=== PATIENT | male | born 1970 | race Caucasian/White ===

== ENCOUNTER 2020-03-30 10:53 | Emergency (ER) | payer OTHER, SELFPAY ==
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
[2020-03-30 10:59] VITALS: BP 184/116; PULSE 60; RESP 18; TEMP 36.7; O2SAT 97
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
[2020-03-30] MEDS: SODIUM CHLORIDE 0.9% IV 1,000 ML 999 ML IV CONT (13:35)
[2020-03-30] MEDS: diazePAM INJ (*CRX) 10 MG/2 ML SYRINGE 5 MG IV PUSH (13:37)
[2020-03-30 13:46] LABS: Basophils Absolute Auto 0.1 K/mm3 (0.0-0.1); Basophils Percent Auto 0.8 % (0.2-1.2); Eosinophils Absolute Auto 0.3 K/mm3 (0-0.3); Eosinophils Percent Auto 4.8 % (0-4.4); Hematocrit 43.9 % (42.0-52.0); Hemoglobin 15.2 g/dL (14.0-18.0); Immature Granulocyte Absolute 0.01 K/mm3 (0.00-0.031); Immature Granulocyte Percent A 0.1 % (0-0.5); Lymphocytes Absolute Auto 2.18 K/mm3 (0.9-3.2); Lymphocytes Percent Auto 30.5 % (18.3-44.2); Mean Corpuscular HGB Conc 34.6 g/dl (32-36); Mean Corpuscular Hemoglobin 29.9 pg (26-34); Mean Corpuscular Volume 86.2 fl (80-100); Mean Platelet Volume 8.9 fl (7.4-10.4); Monocytes Absolute Auto 0.4 K/mm3 (0.1-0.6); Monocytes Percent Auto 5.5 % (2.6-8.5); Neutrophils Absolute Auto 4.2 K/mm3 (1.3-6.7); Neutrophils Percent Auto 58.3 % (45.5-73.1); Platelet Count Result 184 k/mm3 (150-375); Red Blood Count 5.09 M/mm3 (4.6-6.20); Red Cell Distribution Width 12.5 % (11.5-14.5); White Blood Count 7.2 K/mm3 (4.5-10.0)
[2020-03-30 13:58] LABS: Alanine Aminotransferase 49 U/L (4-50); Albumin Level 4.2 g/dL (3.5-5.1); Alkaline Phosphatase 74 U/L (38-126); Anion Gap 7 mmol/L (8-16); Aspartate Amino Transferase 54 U/L (17-59); Bilirubin,Total 0.8 mg/dL (0.2-1.3); Blood Urea Nitrogen 17 mg/dL (9-20); Calcium 9.1 mg/dL (8.4-10.2); Carbon Dioxide 34 mmol/L (22-30); Chloride 103 mmol/L (98-107); Estimated CRCL calculation 105 ml/min; Estimated Glomerular Filt Rate > 60; Glucose 87 mg/dL (75-110); Potassium 3.6 mmol/L (3.4-5.0); Sodium 144 mmol/L (137-145)
--- NOTE | 2020-03-30 14:00 | PC.NURSE ---
Pt unable to give urine sample at this time.
[2020-03-30 14:09] VITALS: BP 171/69; PULSE 88; RESP 17; O2SAT 100
== END 2020-03-30 15:19 | disposition home or self-care (01) ==
PROVIDERS: Emergency Medicine Emergency Medical Services; Emergency Provider Emergency Medicine; PCP Family Medicine
DX: R10.12 Left upper quadrant pain (principal); E78.5 Hyperlipidemia, unspecified; I10 Essential (primary) hypertension; K76.0 Fatty (change of) liver, not elsewhere classified; D73.89 Other diseases of spleen; J98.4 Other disorders of lung; N28.1 Cyst of kidney, acquired; V48.5XXA Car driver injured in noncollision transport accident in traffic accident, initial encounter
CPT/HCPCS: 36415; 71260; 74177; 80053; 85025; 96365; 96375; 99284; J0131; J3360; J7030; Q9967

== ENCOUNTER 2025-03-16 05:53 | Observation (INO) | payer OTHER, SELFPAY ==
[2025-03-16] VITALS (25 sets, daily range): BP systolic 139–184; BP diastolic 63–104; PULSE 46–60; RESP 10–16; TEMP 36.2–36.8; O2SAT 95–100; BMI 36.4
--- NOTE | ~2025-03-16 | XR_ITS ---
Examination: XR chest 1V Clinical History: r/o cva Comparison: CT chest abdomen pelvis 03/30/2020 Technique: Portable AP Findings: Heart size mildly enlarged. Lungs clear. No acute bony abnormality. IMPRESSION: 1. No acute cardiopulmonary findings given portable technique. Reviewed, dictated and finalized at location R.
--- NOTE | ~2025-03-16 | MR_ITS ---
EXAMINATION: MR brain/brain stem wo con DATE: 03/17/2025 08:39 INDICATION: Stroke. TECHNIQUE: Magnetic resonance imaging (MRI) of the brain and brainstem was performed without intravenous contrast. COMPARISON: Head CT 03/16/2025 FINDINGS: There are scattered areas of nonspecific increased T2-weighted signal intensity in the cerebral white matter, which is within normal limits for the patient's age. There is no intracranial hemorrhage, acute infarction, or abnormal intracranial mass lesion. The ventricles are normal in size. There is mild mucosal thickening in the paranasal sinuses. The orbits are normal. The mastoid air cells are normal. IMPRESSION: 1. Normal aging brain. Reviewed, dictated and finalized at location E. IMPRESSION: 1. Normal aging brain.
--- NOTE | ~2025-03-16 | CT_ITS ---
CTA NECK, CTA HEAD Clinical History: L numbness, weakness Comparison: Noncontrast CT head today TECHNIQUE: Helical images thoracic inlet to vertex 100 mL Omnipaque 350 Coronal, sagittal reformats. Multi planar MIPS CT images acquired with automatic exposure control for dose reduction DLP: 1214 mGy-cm Findings: NASCET Criteria utilized CTA NECK Aortic arch: No aneurysm or dissection. Great vessel origins: No stenosis. CCAs: No stenosis. Cervical ICAs: No stenosis. Vertebral Arteries: Patent. Lung Apices: Clear. Thyroid: Unremarkable. Nodes: No enlarged nodes. Bones: No acute bony abnormality. CTA HEAD: Aneurysms: None. Intracranial ICAs: Patent, unremarkable. ACAs and their distal branches: Patent, unremarkable. A-Comm: Identified. Patent, unremarkable. MCAs and their distal branches: Patent, unremarkable. Basilar artery: Patent, unremarkable. tool design checker and their distal branches: Patent, unremarkable. P-Comms: Left side present. IMPRESSION: CTA NECK: 1. No acute findings. CTA HEAD: 1. No acute findings. Reviewed, dictated and finalized at location R.
--- NOTE | ~2025-03-16 | CT_ITS ---
CT HEAD NON-CONTRAST Clinical History: r/o cva Comparison: None Technique: Unenhanced axial images skull base to vertex Coronal, sagittal reformats CT images acquired with automatic exposure control for dose reduction DLP: 681 mGy-cm Findings: Sulci, ventricles: Unremarkable. No intracerebral hemorrhage. No evidence acute territorial infarct. No mass effect, midline shift. Faint bilateral basal ganglia calcification. Bony calvarium intact. Visualized paranasal sinuses: Clear. Mastoid air cells: Clear. IMPRESSION: 1. No acute intracranial findings. Reviewed, dictated and finalized at location R.
--- NOTE | 2025-03-16 05:58 | ECG_ITS ---
Test Date: 2025-03-16 06:39:47 Measurements Intervals [place] Rate: 48 P: 16 CT: 175 QRS: 50 QRSD: 87 T: 78 QT: 454 QTc: 407 Interpretive Statements SINUS BRADYCARDIA BORDERLINE R WAVE PROGRESSION, ANTERIOR LEADS NONSPECIFIC ST & T-WAVE ABNORMALITY- INF/HIGH LAT LEADS BASELINE ARTIFACT- I, II, III, AVR, AVL ,AVF, V1-V2 ABNORMAL ECG No previous ECG available for comparison Electronically Signed On 03-16-2025 07:52:53 CDT by Lenin Gaines D.O.
--- NOTE | 2025-03-16 05:58 | PC.NURSE ---
ed charge aware of code stroke pt, sending a nurse to come grab pt to take them to stroke stop.
[2025-03-16 06:15] LABS: Hematocrit 45.5 % (42.0-52.0); Hemoglobin 15.8 g/dL (14.0-18.0); Immature Granulocyte Percent A 0.2 % (0-0.5); Lymphocytes Absolute Auto 1.82 K/mm3 (0.9-3.2); Mean Corpuscular HGB Conc 34.7 g/dl (32-36); Mean Corpuscular Hemoglobin 29.3 pg (26-34); Mean Corpuscular Volume 84.3 fl (80-100); Nucleated Red Blood Cells Absolute Auto 0.000 K/mm3 (0.0-0.012); Nucleated Red Blood Cells Perc 0.0 % (0.0-0.2); Platelet Count Result 149 k/mm3 (150-375); Red Blood Count 5.40 M/mm3 (4.6-6.20); White Blood Count 6.2 K/mm3 (4.5-10.0)
[2025-03-16 06:15] LABS: Estimated CRCL calculation 102 ml/min; Estimated Glomerular Filt Rate > 60
[2025-03-16 06:28] LABS: INR 1.0; Prothrombin Time 13.2 Seconds (11.1-14.7)
[2025-03-16 06:29] LABS: Alanine Aminotransferase 48 U/L (6-50); Albumin Level 4.3 g/dL (3.5-5.1); Alkaline Phosphatase 79 U/L (38-126); Anion Gap 7 mmol/L (4-12); Aspartate Amino Transferase 44 U/L (17-59); Bilirubin,Total 0.9 mg/dL (0.2-1.3); Blood Urea Nitrogen 17 mg/dL (9-20); Calcium 8.8 mg/dL (8.4-10.2); Carbon Dioxide 32 mmol/L (22-30); Chloride 100 mmol/L (98-107); Estimated CRCL calculation 113 ml/min; Estimated Glomerular Filt Rate > 60; Glucose 155 mg/dL (65-110); Partial Thromboplastin Time 28.5 Seconds (22.3-36.8); Potassium 3.2 mmol/L (3.4-5.0); Sodium 139 mmol/L (137-145); Total Protein 7.8 g/dL (6.3-8.2)
--- NOTE | 2025-03-16 06:30 | ED.NEUROSD ---
HPI - Neuro Symptoms/Deficit General Chief Complaint: Suspected CVA Stated Complaint: i think i am having a stroke Time Seen by Provider: 03/16/25 05:55 Source: patient Mode of arrival: ambulatory Limitations: no limitations History of Present Illness HPI Narrative: This is a 54-year-old male, history of hypertension and diabetes, presents emergency department complaining left arm numbness and difficulty swallowing with last known 05:15 today. The patient states he has began experiencing the symptoms while driving to work. He states the left arm tingling has improved though he continues to have some nausea and sensation of instability. He has no other complaints at this time. Related Data Home Medications ?Medication ?Instructions ?Recorded ?Confirmed ?Last Taken ?Type amlodipine 2.5 mg tablet 2.5 mg PO DAILY 03/16/25 03/16/25 03/15/25 History buspirone 10 mg tablet 5 mg PO BID 03/16/25 03/16/25 03/14/25 History carvedilol 3.125 mg tablet 3.125 mg PO Q12H 03/16/25 03/16/25 03/15/25 History lisinopril 20 1 tablet PO DAILY@0630 03/16/25 03/16/25 03/15/25 History mg-hydrochlorothiazide 25 mg tablet metformin 500 mg tablet,extended 500 mg PO QPM 03/16/25 03/16/25 03/15/25 History release 24 hr sertraline 100 mg tablet 100 mg PO Q24H 03/16/25 03/16/25 03/15/25 History simvastatin 20 mg tablet 20 mg PO QPM 03/16/25 03/16/25 03/15/25 History Allergies Allergy/AdvReac Type Severity Reaction Status Date / Time bee sting Allergy Severe Anaphylaxis Uncoded 03/16/25 18:39 Review of Systems Review of Systems: All systems reviewed & are unremarkable except as noted in HPI and below PMFSH Past Medical History Medical History Diabetes mellitus Hyperlipidemia Hypertension Appendicitis Surgical History Surgical History History of appendectomy Social History Social History Smoking status: Never smoker Alcohol intake: never Substance use: never Lack of Transportation: No Lack of Food: Never True Current Housing: I Have Housing Concerned About Future Housing: No Difficulty Paying Gas/Electric Bills: No Difficulty Paying for Meds: No Currently Unemployed: No Education: Associate Degree Difficulty w/ Childcare or Family Care: No Spiritual care concerns: No Exam Narrative: GENERAL: Well-developed, well-nourished, and in no acute distress. HEAD: Normocephalic, atraumatic. EYES: PERRLA and EOMI. ENT: Nares clear, no rhinorrhea or epistaxis. Mucous membranes moist. Oropharynx without tonsillar hypertrophy exudate or other lesions. Bilateral TMs pearly vaz nonbulging NECK: Supple. No adenopathy or masses. No carotid bruits or JVD CHEST: Clear to auscultation. No respiratory distress. No wheezes rales or rhonchi HEART: Regular rate and rhythm. No murmur heard. Normal peripheral pulses. ABDOMEN: Soft, nontender, nondistended, normal active bowel sounds. EXTREMITIES: Normal range of motion. No edema. SKIN: Warm, dry, no rash. NEURO: Alert and oriented x3. No focal deficit. Strength 5/5 in all extremities, sensation intact bilaterally, noted ataxia, cranial nerves 2-12 intact PSYCH: Normal mood and affect. Course Course Emergency Course: 06:30 - Noncontrast CT head not concerning for acute intracranial abnormality. Bilateral basal ganglia calcifications were noted. 07:16 - On re-evaluation, the patient states the symptoms are beginning to improve. CT angiogram of head and neck negative for intracranial hemorrhage, aneurysm or occlusion. I discussed the patient with neurologist, Dr. Araujo agrees to consult and recommends admission with aspirin and Plavix. I suspect TIA. 07:41 - CBC demonstrates mild thrombocytopenia with platelets of 149 but is otherwise unremarkable. Chemistries demonstrate mild hypokalemia with potassium 3.2. INR 1. Glucose elevated at 155. Troponin negative. EKG not concerning for ischemia or arrhythmia. Chest x-ray not concerning for acute cardiopulmonary process. I discussed the patient with hospitalist, Dr. Garcia who accepts admission. Vital Signs Vital signs: Vital Signs Temperature 98.3 F 03/16/25 06:33 Pulse Rate 55 L 03/16/25 06:33 Respiratory Rate 11 L 03/16/25 06:33 Blood Pressure 184/99 H 03/16/25 06:33 Pulse Oximetry 96 03/16/25 06:33 Temperature 98.3 F 03/16/25 06:33 Pulse Rate 49 L 03/16/25 07:31 Respiratory Rate 14 03/16/25 07:31 Blood Pressure 159/86 H 03/16/25 07:31 Pulse Oximetry 97 03/16/25 07:31 MDM - Neuro Symptoms/Deficit MDM Narrative Medical decision making narrative: Plan protocol imaging, labs, EKG neurology consultation, reassess Differential Diagnosis Differential diagnosis: Likely cerebrovascular accident, transient cerebral ischemia and other (Intracranial hemorrhage, intracranial mass, metabolic abnormality, hypoglycemia, other) Lab Data 03/16/25 06:06 03/16/25 06:11 Labs: Lab Results 03/16/25 03/16/25 03/16/25 Range/Units 05:59 06:06 06:11 WBC 6.2 (4.5-10.0) K/mm3 RBC 5.40 (4.6-6.20) M/mm3 Hgb 15.8 (14.0-18.0) g/dL Hct 45.5 (42.0-52.0) % MCV 84.3 (80-100) fl MCH 29.3 (26-34) pg MCHC 34.7 (32-36) g/dl RDW 12.6 (11.5-14.5) % Plt Count 149 L (150-375) k/mm3 MPV 8.9 (7.4-10.4) fl Immature Gran % (Auto) 0.2 (0-0.5) % Neut % (Auto) 57.5 (45.5-73.1) % Lymph % (Auto) 29.6 (18.3-44.2) % [place] % (Auto) 7.0 (2.6-8.5) % Eos % (Auto) 4.9 H (0-4.4) % Baso % (Auto) 0.8 (0.2-1.2) % Lymph # (Auto) 1.82 (0.9-3.2) K/mm3 [place] # (Auto) 0.4 (0.1-0.6) K/mm3 Eos # (Auto) 0.3 (0-0.3) K/mm3 Baso # (Auto) 0.1 (0.0-0.1) K/mm3 Abs Immat Gran (auto) 0.01 (0.00-0.031) K/mm3 Absolute Neuts (auto) 3.5 (1.3-6.7) K/mm3 Absolute Nucleated RBC 0.000 (0.0-0.012) K/mm3 Nucleated RBC % 0.0 (0.0-0.2) % PT 13.2 (11.1-14.7) Seconds INR 1.0 APTT 28.5 (22.3-36.8) Seconds Sodium 139 (137-145) mmol/L Potassium 3.2 L (3.4-5.0) mmol/L Chloride 100 (98-107) mmol/L Carbon Dioxide 32 H (22-30) mmol/L Anion Gap 7 (4-12) mmol/L BUN 17 (9-20) mg/dL Creatinine 0.81 0.90 (0.7-1.3) mg/dL Estim Creat Clear Calc 113 102 ml/min Estimated GFR > 60 > 60 (59 - ) Glucose 155 H (65-110) mg/dL POC Capillary Glucose 174 H (65-105) mg/dl Calcium 8.8 (8.4-10.2) mg/dL Total Bilirubin 0.9 (0.2-1.3) mg/dL AST 44 (17-59) U/L ALT 48 (6-50) U/L Alkaline Phosphatase 79 (38-126) U/L Troponin I 0.026 (0.000-0.034) ng/mL Total Protein 7.8 (6.3-8.2) g/dL Albumin 4.3 (3.5-5.1) g/dL ECG Data EKG #1: Attestation: I personally reviewed and interpreted this ECG as follows: ECG completion date: 03/16/25 ECG completion time: 06:39 Prior ECG tracings: not available for review Interpretation: Sinus bradycardia, rate 48, normal axis, no ST segment elevations or T-wave inversions concerning for ischemia, normal intervals with QTC of 407. Discharge Plan Discharge Clinical Impression: Left arm numbness, Brain TIA, Bradycardia, sinus, Acute hypokalemia Patient Disposition: Still a Patient Condition: Serious Time of Disposition: 07:41
[2025-03-16 06:37] LABS: Troponin I 0.026 ng/mL (0.000-0.034)
--- NOTE | 2025-03-16 07:32 | PC.NURSE ---
BSR completed with Alysia GIBSON
--- OUTSIDE RECORDS SUMMARY | 2025-03-16 07:34 | XMS_ITS | Data Portability ---
Author Organization [facility], Main Office Address [address] [place] [address] Assessment No assessment recorded. Plan of Treatment Reminders Order Date Submit Date Provider Last Modified By Organization Details Last Modified Time Details Appointments Any 15 2025 03:15P Dawn Alvarez, PERFORMANCE IMPROVEMENT COORDINATOR Not available Not available Not available Lab glycohemo globin, total, blood 2024 025 [facility] (Lab), [address] [place], [address], 02/07/2025 17:13:30 lipid panel, serum 2024 025 [facility] (Lab), [address] [place], [address], 02/07/2025 17:13:30 glycohemo globin, total, blood [address] (Lab), [address] [place], [address], 12/21/2024 08:11:17 lipid panel, serum [address] (Lab), [address] [place], [address], 12/21/2024 08:11:17 CMP, serum or plasma [address] (Lab), [address] [place], [address], 12/21/2024 08:11:17 TSH, serum or plasma [address] (Lab), [address] [place], [address], 12/21/2024 08:11:18 CBC w/ auto diff 2024 025 [facility] (Lab), [address] [place], [address], 12/15/2024 00:18:48 testoster one, free + total, serum [address] (Lab), [address] [place], [address], 12/21/2024 08:11:18 noninvasi ve colorecta l cancer DNA + occult blood screening , QL, stool 2024 025 [place] [address] [facility], [address], [address], [place], [address], 12/21/2024 08:11:17 PSA, serum or plasma 2024 025 [facility] (Lab), [address] [place], [address], 06/28/2024 16:02:06 Referral general surgeon referral - Please call patient to schedule an appointme nt. Thank you. 2024 025 [email or web address] Milo Whitney MD, [address] [facility], [address], [place], [address], 01/11/2025 09:12:46 Procedures None recorded. Surgeries None recorded. Imaging US, abdominal wall - Please call patient to schedule. [address] [facility] ([facility]), [address] [place], [address], 01/06/2025 20:36:56 Medication Orders hydroxyzi ne HCl 25 mg tablet 2024 025 [facility] #75955, [address], [place], [id number], 12/14/2024 12:39:51 buspirone 10 mg tablet [address] [facility] #08646, [address], [place], [id number], 12/14/2024 11:56:56 simvastat in 20 mg tablet 2024 025 [facility] #79843, [address], [place], [id number], 09/19/2024 16:09:03 gabapenti n 300 mg capsule 2024 025 [facility] #60575, [address], [place], [id number], 09/19/2024 16:16:37 buspirone 10 mg tablet [address]18, [address], [place], [id number], 12/14/2024 11:56:56 alprazola m 0.5 mg tablet [address]01493, [address], [place], [id number], 12/14/2024 11:56:44 Patient TargetsNo targets recorded. Patient InstructionsNo instructions recorded. Reason for Referral General Surgeon Referral for Lipoma of trunk Please call patient to schedule an appointment. Thank you. Referring Physician: Sushila Alvarez, Family Medicine, Encounter Date: 12/14/2024 Results Created Date Observation Date Name Description Value Unit Range Abnormal Flag Note LastModifiedBy Organization Detail LastModifiedTime 01/14/20 25 01/13/2025 COLOG UARD cologuard result reportable NEGATI VE negati ve normal The Colog uard (TM) test was perfo rmed on this speci men. NEGAT NICHOLAS TEST RESUL T. A negat nicholas Colog uard resul t indic ates a low likel ihood that a color ectal cance r (CRC) or advan remy adeno ma (yoshi omato us polyp s with more advan remy pre-m align ant featu res) is prese nt. The chanc e that a perso n with a negat nicholas Colog uard test has a color ectal cance r is less than 1 in 1500 (nega tive predi ctive value >99.9 %) or has an advan remy adeno ma is less than 5.3% (nega tive predi ctive value 94.7% ). These data are based on a prosp ectiv e cross -sect ional study of 10,00 0 indiv idual s at [place] ge risk for color ectal cance r who were scree emerson with both Colog uard and colon oscop y. (Viry Tillman. et al, N Engl J Med 2014; 370(1 4):12 86-12 97) The teodora l value (refe rence range ) for this assay is negat nicholas. COLOG UARD RE-SC REENI NG RECOM MENDA TION: Perio dic color ectal cance r scree shashi is an impor tant part of preve ntive healt hcare for asymp tomat ic indiv idual s at [place] ge risk for color ectal cance r. Follo wing a negat nicholas Colog uard resul t, the Ameri can Cance r Socie ty and U.S. Multi -Soci ety Task Force scree shashi guide lines recom mend a Colog uard re-sc reeni ng inter ovidio of 3 years . Refer ences : Ameri can Cance r Socie ty Guide line for Color ectal Cance r Scree shashi: https ://christal w.can cer.o rg/ca ncer/ colon -rect al-ca ncer/ detec tion- diagn osis- stagi ng/ac s-rec ommen datio ns.ht ml.; Cody GABRIEL, Linda STONE, Kala ARIZMENDI, Color ectal Cance r Scree shashi: Recom menda tions for Physi cians and Patie nts from the U.S. Multi -Soci ety Task Force on Color ectal Cance r Scree shashi , Kierra Lobo oente rolog y 2017; 112:1 016-1 030. TEST DESCR IPTIO N: [place] site algor ithmi c sj sis of stool DNA-b iomar kers with hemog lobin immun oassa y. Quant itati ve value s of indiv idual bioma rkers are not repor table and are not assoc iated with ind idual bioma rker resul t refer ence range s. Colog uard is inten ded for color ectal cance r scree shashi of adult s of eithe r sex, 45 years or older , who are at [facility] for color ectal cance r (CRC) . Colog uard has been appro angela for use by the U.S. FDA. The perfo rmanc e of Colog uard was estab lishe d in a cross secti onal study of [facility] adult s aged 50-84 . Colog uard perfo rmanc e in patie nts ages 45 to 49 years was estim ated by sub-g roup sj sis of near- age group s. Colon oscop ies perfo rmed for a posit nicholas resul t may find as the most clini ector signi ficdelmis t lesio n: color ectal cance r [4.0% ], advan remy adeno ma (incl uding sessi le chidi corbin polyp s great er than or equal to 1cm diame ter) [20%] or non- advan remy adeno ma [31%] ; or no color ectal neopl louise [45%] . These estim ates are deriv ed from a prosp ectiv e cross -sect ional scree shashi study of 10,00 0 indiv idual s at [facility] risk for color ectal cance r who were scree emerson with both Colog uard and colon oscop y. (Viry Castano et al, N Engl J Med 2014; 370(1 4):12 86-12 97.) Colog uard may produ ce a false negat nicholas or false posit nicholas resul t (no color ectal cance r or preca ncero us polyp prese nt at colon oscop y follo w up). A negat nicholas Colog uard test resul t does not guara ntee the absen ce of CRC or advan remy adeno ma (pre- cance r). The curre nt Colog uard scree shashi inter ovidio is every 3 years . (Amer ican Cance r Socie ty and U.S. Multi -Soci ety Task Force ). Colog uard perfo rmanc e data in a 10,00 0 patie nt pivot al study using colon oscop y as the refer ence metho d can be [facility]es sed [facility] locat ion: www.e xactl abs.c om/re jessica . Addit ional descr iptio n of the Colog uard test proce ss, warni ngs and preca ution s can be found at www.c ologu imer.c om. Not Available [facility] [address], [place], [address], 01/20/2025 05:40:21 01/07/20 25 01/06/2025 US, abdom inal wall No observ ation record ed. [facility] [address] [place], [address], 01/10/2025 10:59:38 01/07/20 25 01/06/2025 US, abdom inal wall No observ ation record ed. [facility] [address] [place], [address], 01/10/2025 10:59:39 Result Notes None recorded. Problems Name Problem SNOMED Code Status Onset Date Resolution Date Notes Provider Name and Address Organization Details Recorded Time Pain in throat 815399244 Completed Not Available [facility] 3 16:28:28 Contact dermatiti s caused by urushiol from [employer] amanda 384185956 Completed Not Available [facility] 3 16:28:28 Lateral epicondyl itis 612374456 Completed Not Available [facility] 3 16:28:28 Hypertens nicholas disorder 49245943 Active Not Available [facility] 3 13:57:29 Viral syndrome 314892273 Completed Not Available [facility] 3 16:28:28 Herpes zoster 1687108 Completed Not Available [facility] 3 16:28:28 Post-trau matic stress disorder 72841425 Active Not Available [facility] 3 13:57:29 Anxiety 82564478 Active MATTHEW Paz [address], [address], [place], [address] , [facility] [employer] 5 12:11:59 Cough 90639136 Completed Not Available [facility] 3 16:28:28 Inflammat ion of sacroilia c joint 10021503 Active Not Available [facility] 3 13:57:29 Hyperlipi demia 32110785 Active Not Available [facility] 3 13:57:29 Essential hypertens ion 06045540 Active Not Available [facility] 3 13:57:29 Lipoma 69268805 Active Not Available [facility] 3 13:57:29 Sleep disorder 28034236 Active 2022 Not Available [facility] 3 13:57:29 Erectile dysfuncti on 533276017 Active 2022 Not Available [facility] 3 13:57:29 Mixed anxiety and depressiv e disorder 850332175 Active 2022 Tere Mccormack MD [address], [address], [place], [address] , [facility] [employer] 3 14:25:34 Allergic reaction to bee sting 468261648 Active 2023 PEMA Miles [address], [address], [place], [address] , [employer] 4 11:32:03 Screening for malignant neoplasm of prostate Active 2023 PEMA Miles [address], [address], [place], [address] , [employer] [facility] 4 15:46:01 Neuropath y 060692659 Active 2024 PEMA Milse [address], [address], [place], [address] , [employer] [facility] 5 16:12:08 Strain of muscle of right groin region 79785518214 333061 Active 2024 EPMA Miles [address], [address], [place], [address] , [employer] [facility] 5 16:13:09 Lipoma of trunk 61058850739 9107 Active 2024 MATTHEW Paz [address], [address], [place], [address] , [employer] [facility] [employer] [facility] 5 12:07:54 Periphera l neuropath ic pain 382155140 Active 2024 MATTHEW Paz [address], [address], [place], [address] , [employer] [facility] 5 12:17:43 Reduced libido 3626758 Active 2024 MATTHEW Paz [address], [address], [place], [address] , [employer] [facility] 5 12:28:56 Well controlle d type 2 diabetes mellitus 224979951 Active 2024 MATTHEW Paz [address], [address], [place], [address] , [employer] [facility] 5 17:10:21 Male hypogonad ism 92404370 Active 2024 MATTHEW Paz [address] [facility], [facility] [address], [place], [address] , [employer] 5 12:44:58 Irritabil ity and anger 868364889 Active 2024 Sushila Alvarez, [facility] [address] [facility], [facility] [address], [place], [address] , [employer] 5 14:09:46 Psoriasis 2321476 Active 2024 Sushila Alvarez, [facility] [address] [facility], [facility] [address], [place], [address] , [employer] 5 17:11:19 Notes:Tere Mccormack MD [facility] home sleep study 08/25/22 AHI = 10, supine AHI = 26 Medical History: Anxiety/PTSD Obesity with mild OSAHS, AHI = 10, 08/25/22 Hypertension Mixed hyperlipidemia ED Problem Notes None recorded. Procedures Surgical History Date Name Laterality Status Provider Name and Address Organization Details Recorded Time appendectomy completed Belkis Argueta RN [facility] [employer] 12/14/2024 12:01:11 Imaging Results None recorded. Procedure Notes None recorded. Medical Equipment None Reported. Allergies Allergen ID Allergen Name Allergen Category Reaction Reaction Severity Criticality Documentation Date Start Date Code Code System Note Provider Name and Address Organization Details Recorded Time 33575 honey bee venom medicatio n Not available Not available Not available 11/19/2023 43563 7 RxNorm Darlyn Lam RN [facility], [facility] [employer] 4 15:35:19 Medications Name Sig Start Date Stop Date Status Note LastModified by Organization Details LastModified Time status covid-19/fl u a-b antigen tst TEST DIRECTED TODAY 12/14 completed Not Available Not Available Not Available cyclobenzap rine 10 mg tablet TAKE 1 TABLET BY MOUTH DAILY AT BEDTIME NEEDED 07/26 completed Not Available Not Available Not Available buspirone 5 mg tablet TAKE 1 TABLET BY MOUTH TWICE DAILY AFTER FOOD 12/14 completed Not Available Not Available Not Available nystatin 100,000 unit/mL oral suspension Take 5 mL 4 times a day by oral route for 10 days. 11/10 completed Not Available Not Available Not Available ibuprofen 800 mg tablet TAKE 1 TABLET BY MOUTH THREE TIMES DAILY 07/26 completed Not Available Not Available Not Available alprazolam 1 mg tablet TAKE 1 TABLET BY MOUTH THREE TIMES DAILY NEEDED. MAKE LAST 30 DAYS 12/14 completed Not Available Not Available Not Available fluconazole 150 mg tablet Take 1 tablet every day by oral route for 7 days. 11/10 completed Not Available Not Available Not Available hydrocodone 5 mg-acetamin ophen 325 mg tablet Take 1 tablet every 6 hours by oral route. 2013 active Not Available Not Available Not Avai lable Medrol (Wood) 4 mg tablets in a dose pack Take by oral routeas directed active Not Available Not Available No t Available prednisone 20 mg tablet TAKE 3 TABLETS BY MOUTH DAILY FOR 7 DAYS 11/18 completed Not Available Not Available Not Available testosteron e cypionate 100 mg/mL intramuscul ar oil Inject 0.75 ml once weekly IM as directed 02/07 completed Not Available Not Available Not Available sertraline 100 mg tablet TAKE 1 TABLET BY MOUTH DAILY active Not Available Not Available No t Available Zithromax Z-Wood 250 mg tablet TAKE 2 TABLETS (500 MG) BY ORAL ROUTE ONCE DAILY FOR 1 DAY THEN 1 TABLET (250 MG) BY ORAL ROUTE ONCE DAILY FOR 4 DAYS 03/21 completed Not Available Not Available Not Available amlodipine 2.5 mg tablet TAKE 1 TABLET BY MOUTH EVERY DAY IN THE MORNING active Not Available Not Available No t Available amlodipine 5 mg tablet TAKE 1 TABLET BY MOUTH EVERY DAY IN THE MORNING 07/26 completed Not Available Not Available Not Available sildenafil 100 mg tablet TAKE 1 TABLET BY MOUTH EVERY DAY NEEDED 2024 active Not Available Not Available Not Avai lable carvedilol 3.125 mg tablet TAKE 1 TABLET BY MOUTH TWICE DAILY active Not Available Not Available No t Available Zofran 4 mg tablet Take 1 tablet every 8 hours by oral route as needed. active Not Available Not Available No t Available alprazolam 0.5 mg tablet TAKE 1 TABLET BY MOUTH THREE TIMES DAILY FOR ANXIETY TRYING TO WEAN DOWN 12/14 completed Not Available Not Available Not Available amoxicillin 875 mg tablet Take 1 tablet every 12 hours by oral route. active Not Available Not Available No t Available tamsulosin 0.4 mg capsule Take 1 capsule every day by oral route. 2013 active Not Available Not Available Not Avai lable benzonatate 100 mg capsule TAKE 1 CAPSULE BY MOUTH THREE TIMES DAILY FOR 5 DAYS. MAY TAKE 1-2 TABLETS UP TO 3 TIMES DAILY FOR COUGH 11/18 completed Not Available Not Available Not Available simvastatin 20 mg tablet TAKE 1 TABLET BY MOUTH DAILY active Not Available Not Available No t Available Cipro 500 mg tablet Take 1 tablet every 12 hours by oral route. 2013 active Not Available Not Available Not Avai lable buspirone 10 mg tablet TAKE 1 TABLET BY MOUTH TWICE DAILY FOR ANXIETY 12/14 completed Not Available Not Available Not Available clotrimazol e-betametha sone 1 %-0.05 % topical cream APPLY TO THE AFFECTED AND SURROUNDI NG AREAS OF SKIN BY TOPICAL ROUTE 2 TIMES PER DAY IN THE MORNING AND EVENING FOR 2 WEEKS 08/02 completed Not Available Not Available Not Available gabapentin 300 mg capsule TITRATE PER ATTACHED DIRECTION S TO A DOSE OF 2 CAPSULES BY MOUTH THREE TIMES DAILY active Not Available Not Available No t Available lisinopril 20 mg-hydrochl orothiazide 25 mg tablet TAKE 2 TABLETS BY MOUTH DAILY active Not Available Not Available No t Available hydroxyzine HCl 25 mg tablet TAKE 1 TABLET BY MOUTH THREE TIMES DAILY NEEDED active Not Available Not Available No t Available Levaquin 500 mg tablet Take 1 tablet every 24 hours by oral route for 10 days. active Not Available Not Available No t Available epinephrine 0.3 mg/0.3 mL injection, auto-inject or INJECT 1 PEN IN THE MUSCLE ONE TIME DIRECTED NEEDED active Not Available Not Available No t Available testosteron e cypionate 200 mg/mL intramuscul ar oil INJECT 0.25 ML INTO MUSCLE EVERY 4 WEEKS active Not Available Not Available No t Available Lopid 600 mg tablet Take 1 tablet twice a day by oral route. 2013 active Not Available Not Available Not Avai lable ondansetron 4 mg disintegrat ing tablet DISSOLVE 1 TABLET ON THE TONGUE EVERY 6 HOURS FOR 3 DAYS NEEDED FOR NAUSEA OR VOMITING 11/18 completed Not Available Not Available Not Available metformin ER 500 mg tablet,exte nded release 24 hr TAKE 1 TABLET BY MOUTH EVERY DAY DIRECTED active Not Available Not Available No t Available amoxicillin 875 mg-potassiu m clavulanate 125 mg tablet TK 1 T PO BID TAT active Not Available Not Available No t Available fenofibrate 160 mg tablet TAKE 1 TABLET DAILY 10/22 completed Not Available Not Available Not Available Nucynta ER 100 mg tablet,exte nded release Take 1 tablet every 12 hours by oral route. 04/05 completed Not Available Not Available Not Available Nucynta ER 50 mg tablet,exte nded release Take 1 tablet every 12 hours by oral route as needed. 11/18 completed Not Available Not Available Not Available Niacin (niacinamid e) 500 mg tablet Take 1 tablet every day by oral route. active Not Available Not Available No t Available Vitals Date Recorded Body height Body mass index (BMI) Body weight Body temperature Heart rate Oxygen saturation Oxygen saturation in Arterial blood by Pulse oximetry Systolic And Diastolic Provider Name and Address Organization Details Last Updated DateTime 5 177.8 cm 36 kg/m2 424569. 68 g 98.2 [degF] 80 /min 98 % 98 % 140/80 mm[Hg] Sowmya Cody CMA [facility] [employer] 5 09:55:19 Date Recorded Body height Body mass index (BMI) Body weight Body temperature Oxygen saturation Oxygen saturation in Arterial blood by Pulse oximetry Heart rate Systolic And Diastolic Provider Name and Address Organization Details Last Updated DateTime 5 177.8 cm 36.3 kg/m2 548174. 51 g 98.2 [degF] 97 % 97 % 60 /min 132/82 mm[Hg] Nolvia Ibrahim RN [facility] [employer] 5 16:08:56 Date Recorded Body height Body mass index (BMI) Body weight Body temperature Systolic And Diastolic Provider Name and Address Organization Details Last Updated DateTime 09/19/2024 177.8 cm 36 kg/m2 277325. 68 g 98.1 [degF] 132/84 mm[Hg] MED Garcia [facility] [employer] [facility] 5 15:59:03 Date Recorded Body height Body mass index (BMI) Body weight Body temperature Heart rate Respiratory rate Oxygen saturation Oxygen saturation in Arterial blood by Pulse oximetry Systolic And Diastolic Provider Name and Address Organization Details Last Updated DateTime 5 177.8 cm 36.4 kg/m2 969794. 46 g 97.3 [degF] 49 /min 20 /min 94 % 94 % 160/100 mm[Hg] Belkis Argueta RN [facility] [employer] [facility] 5 11:59:30 Date Recorded Body height Body mass index (BMI) Body weight Body temperature Heart rate Respiratory rate Pain severity - 0-10 verbal numeric rating [Score] - Reported Oxygen saturation Oxygen saturation in Arterial blood by Pulse oximetry Systolic And Diastolic Provider Name and Address Organization Details Last Updated DateTime 5 177.8 cm 36.7 kg/m2 425636. 85 g 97.2 [degF] 55 /min 20 /min 0 97 % 97 % 154/100 mm[Hg] Belkis Argueta RN [facility] [employer] [facility] 5 16:39:39 Social History Question Answer Notes LastModified by Organizat ion Details LastModified Time Tobacco Smoking Status Never Smoker Darlyn Lam RN [facility], [facility] [employer] [facility] 03/29/2024 12:47:04 In The 14 Days Before Symptom Onset, Have You Had Close Contact With A Laboratory-confirm ed COVID-19 While That Case Was Ill? No Information n ot available 12/14/2024 In The 14 Days Before Symptom Onset, Have You Had Close Contact With A Person Who Is Under Investigation For COVID-19 While That Person Was Ill? No Information not available 12/14/2024 What Type Of Diet Are You Following? REGULAR Information n ot available 12/14/2024 Have There Been Any Changes To Your Family Or Social Situation? No Information no t available 12/14/2024 Where Do You Live? Other [place] Inform ation not available 12/14/2024 How Many Children Do You Have? 1 Information not available 12/14/2024 Do You Have Any Pets? No Information not available 12/14/2024 What Is Your Relationship Status? Information not available 12/14/2024 Do You Use Your Seat Belt Or Car Seat Routinely? Yes Information not available 12/14/2024 Do You Have Smoke And Carbon Monoxide Detectors In Your Home? Yes Information not available 12/14/2024 Are You Passively Exposed To Smoke? No Information no t available 12/14/2024 Are There Any Smokers In Your House? No Information not available 12/14/2024 Do You Participate In Social Media? Yes Information not available 12/14/2024 Do You Use Sunscreen Routinely? No Information not available 12/14/2024 Have You Recently Traveled Abroad? No Information not available 12/14/2024 Sex: Male Functional Status Question Answer Note LastModified by [employer] ion Details LastModified Time Are you currently employed? Yes Information not available 12/14/2024 What is your occupation? [employer] Information not available 12/14/2024 What is your exercise level? None Information not available 12/14/2024 Mental Status Question Answer Note LastModified by Organization D etails LastModified Time Do you feel stressed (tense, restless, nervous, or anxious, or unable to sleep at night)? [id number] Information not available 12/14/2024 Family History Relationship Description Onset Age of this Age Resolved Age Notes LastModified by Organization Details LastModified Time Mother Muscular dystrophy Not available 2024 12:00:03 Mother Hypertensive disorder Not available 2024 12:00:35 Father Malignant neoplasm of prostate Not available 2024 12:00:26 Medical History Condition Response OBESITY Y Low Testosterone Y HYPERTENSION Y HIGH CHOLESTEROL / HYPERLIPIDEMIA Y Immunizations Vaccine Type Date Status Note Provider Nam e and Address Organization Details Recorded Time zoster recombinant 2 completed Not Available [facility] 10/06/2022 13:57:29 zoster recombinant 1 completed Not Available [facility] 10/06/2022 13:57:29 Tdap 7 completed Not Available [facility] 10/06/2022 13:57:29 MMR 7 completed Not Available [facility] 10/06/2022 13:57:29 Past Encounters Encounter ID Performer Location Encounter Start Date Encounter Closed Date Diagnosis/Indication Diagnosis SNOMED-CT Code Diagnosis ICD10 Code Diagnosis IMO Codes Diagnosis Note [id number] Tere Mccormack MD [facility] [address] [place] [address] [place] [address] 03/21/2021 00:00:00 03/22/2021 06:39:13 [id number] Tere Mccormack MD [facility] [address] [place] [address] [place] [address] 07/24/2021 00:00:00 07/24/2021 20:56:00 [id number] Tere Mccormack MD [facility] Courtney gordillo [address] [place] [address] [place] [address] 10/16/2021 00:00:00 10/16/2021 21:37:57 [id number] Tere Mccormack MD [facility] Courtney gordillo [address] [place] [address] [place] [address] 08/14/2022 13:55:08 08/14/2022 14:24:33 Adult health examination 279982083 Z00.00 Hyperlipidemia 26296307 E78.5 Family his tory of malignant neoplasm of prostate 925420233 Z80.42 Sleep disorder 51837601 G47.9 Essential hypertension 34476041 I10 BP recheck is 170/100 Watch salt and monitor away from here [id number] Bill Cruz MD [facility] Courtney llorion [address] [place] [address] [place] [address] 11/19/2023 15:25:55 11/19/2023 15:49:43 Essential hypertension 08838467 I10 Hyperlipidemia 55640979 E78.5 Screening for malignant neoplasm of prostate 968079190 Z12.5 Hepatitis C screening 41 6739615 Z11.59 Anxiety 63504718 F41.9 Erectile dysfunction 860 005613 F52.21 Sleep disorder 89745884 G47.9 [id number] Bill Cruz MD [facility] Courtney llorion [address] [place] [address] y [place] [address] 03/29/2024 12:34:35 03/29/2024 12:55:10 Essential hypertension 04407779 I10 Anxiety 73000555 F41.9 Hyperlipidemia 32228455 E78.5 Mixed anxi ety and depressive disorder 050613271 F41.8 Post-traum atic stress disorder 26026952 F43.10 [id number] Bill Cruz MD [facility] [address] [facility] [place]reia [place] [address] 04/25/2024 16:00:40 04/25/2024 16:18:39 Essential hypertension 38766670 I10 Anxiety 27657715 F41.9 Hyperlipidemia 67836760 E78.5 Mixed anxi ety and depressive disorder 465241518 F41.8 Post-traum atic stress disorder 79700412 F43.10 [id number] Bill Cruz MD [address] [address] 06/28/2024 09:47:29 06/28/2024 10:19:56 Screening for malignant neoplasm of prostate 869903022 Z12.5 Anxiety 46954239 F41.9 Essential hypertension 55666908 I10 Hyperlipidemia 94351583 E78.5 Mixed anxi ety and depressive disorder 602207855 F41.8 Post-traum atic stress disorder 98963637 F43.10 [id number] Bill Cruz MD [address] [address] 07/26/2024 15:56:48 07/26/2024 16:24:38 Anxiety 38704380 F41.9 Post-traum atic stress disorder 90018554 F43.10 Essential hypertension 83536839 I10 Hyperlipidemia 43056306 E78.5 Sleep disorder 18956008 G47.9 [id number] Bill Cruz MD [address] [address] 09/19/2024 15:47:18 09/19/2024 16:22:49 Hyperlipidemia 12464691 E78.5 Post-traum atic stress disorder 29646203 F43.10 Strain of muscle of right groin region 7270318978 9739495 S76.011A Neuropathy 940733309 G62 .9 Essential hypertension 11119294 I10 [id number] [facility] [address] [place] [address] 12/14/2024 11:48:01 12/14/2024 12:39:59 Physical examination 7050020 Z00.00 812056 Patient is overall [facility]a [facility] maintenanc e Vlad scussed diet and exercisePa tient questions answered Lipoma of trunk 28119476 01 52223 D17.1 18486390 Recently hit one with a saw and had a rupture has significan t bruising Anxiety 24665226 F41.9 91984 Not well controlled . Adverse effects to Buspar Peripheral neuropathic pain 010168098 M79.2 46646625 Chronic, worsening. Last A1C unknownMan aged with gabapentin Essential hypertension 33414569 I10 Well controlled Hyperlipidemia 90823950 E78.5 Last labs many years ago. Tolerating simvastati n well Screening for malignant neoplasm of colon 290640102 Z12.11 0990944 Reduced libido 0281518 R 68.82 56514123 Possibly related to sertraline , we did discuss switching to Wellbutrin but will wait until testostero ne returns [id number] Bill Cruz MD [facility] Carlos [address] [place] [address] 02/07/2025 16:19:15 02/07/2025 17:18:04 Psoriasis 8209236 L40.9 32810 Has tried and failed clobetasol , triamcinol one, and nystatin.Z oryve given in office Hyperlipidemia 17396136 E78.5 Last labs many years ago. Tolerating simvastati n well Well contr olled type 2 diabetes mellitus 049520531 E11.9 448985 Health Concerns Section Related Observation LastModified by Organization Detai ls LastModified Time None Recorded Concern Status LastModified by Organization Details LastModified Time None Recorded Advance Directives Directive None Recorded Payers Insurance Date Sequence Insurance Name Policy Number Policy Granado Covered Member ID Granado Member ID Guarantor Name 07/26/2024 1 [facility] - [employer] () Jung Rothman [id number] Jung Rothman 02/04/2025 1 [facility] () Jung Rothman [id number] Jung Rothman Notes Date Note Type Note Provider Name and Address Organization Details Recorded Time 06/28/2024 text/html ROS as noted in the HPI no changes [employer] [facility] [address] [employer], [place], [address], [employer] 07/01/2024 19:45:31 07/26/2024 text/html ROS as noted in the HPI trying to wean from alprazolam to buspirone [employer] [facility] [address], [employer], [place], [address], [employer] 08/01/2024 20:08:16 09/19/2024 text/html ROS as noted in the HPI tingling in feet , lumps under skin [employer] [facility] [address] [employer], [place], [address], [employer] 10/01/2024 11:41:56 12/14/2024 text/html Jung Rothman is a 54 year old male patient here today for an annual wellness, he previously saw Aaron Jean He has a family hx of prostate cancer, would like his PSA checked. He has a history of anxiety with insomnia. He has been taking buspirone 5 mg in the AM and 10 mg at bedtime and notes this is causing blurred vision. History of hypertension. This is not well controlled. Patient does not check BP readings at home.BP on arrival today is 160/100, recheck 142/80Patient declines headaches, tinnitus, fatigue. Does occasionally get double vision, can resolve with with rest, getting out of the sun. He has STEPHANI LE neuropathy. He is taking gabapentin 300 mg, 2 tabs, TID. Hyperlipidemia. Last labs many years agoThey are currently taking simvastatin 20 mg. Admits to muscle cramping.Advised to limit fatty/greasy foods and increase cardiovascular exercise Concerns with low sex drive Flu shot: declinesCOVID vaccines: declinesTDap: 2017Shingrix: completedPSA: ologuard ordered MATTHEW Paz [address], [facility] [address], [place], [address], [facility] [address] [facility] [employer] [facility] 12/14/2024 13:08:07 02/07/2025 text/html Jung Rothman is a 54 year old male patient here today for a 3 month FU He has concerns with white spots on his left arm, these are silver scaly. History of hypertension. This is well controlled. Patient does not check BP readings at home.BP on arrival today is 154/100.Patient declines headaches, tinnitus, light headedness, fatigue. Type 2 diabetes mellitus. This is well controlled. Last A1C 6.6 on 12/14/24.The patient does not check their blood glucose at home.They are currently taking metformin ER 500 mg daily.Patient denies confusion, excessive urination and thirst, neuropathy, foot wounds. MATTHEW Paz [address], [facility] [address], [place], [address], [employer] 02/07/2025 17:19:16
--- OUTSIDE RECORDS SUMMARY | 2025-03-16 07:34 | XMS_ITS | Patient Health Record ---
Author Organization [facility] [employer] Address [address] [facility] [address] [place] [address] Care Team Providers Care Shoulder Pad Molder Name Role Phone Samuel Trejo Unavailable [phone] Reason For Referral No Information Medications Medication SIG (Take, Route, Frequency, Duration) Notes Start Date End Date Status Simvastatin 20 MG Tablet Oral Active Sertraline HCl 100 MG Tablet Oral Active busPIRone HCl 5 MG Tablet Oral Active Lisinopril-hydroCHLOROthiaz yas 20-25 MG Tablet Oral Active Plan Of Treatment No Information Insurance Providers Payer Name Payer Address Payer Phone Subscriber Number Group Number Insured Name Patient Relationship to Insured Coverage Start Date Coverage End Date [facility] [address] [place] [address] [id number] CANDACE GREEN Self - patient is the insured
--- OUTSIDE RECORDS SUMMARY | 2025-03-16 07:34 | XMS_ITS | Clinical Summary ---
Author Organization [facility] [employer] Address [address] [place] [address] Care Team Providers Care Western [employer] Assembly Line Worker Name Role Phone Unavailable Primary Care Provider Unavailabl e Source Comments [facility],non-owned Affiliates and Associated Physician Practices is amultiple site organization consisting of ambulatory clinics and hospital sitesin [place], [place], [place] and [place]. This disclosure is being madepursuant to the Care Everywhere program and may not contain all information available regarding this patient. Last updated 18.[facility] [employer] Allergies Active Allergy Reactions Criticality Noted Date Comments Bee Anaphylaxis High 03/06/2014 Medications * Be aware that medications may not be up to date on this document. Alwaysverify current medications with the patient. lisinopril-hydr ochlorothiazide (PRINZIDE; ZESTORETIC) 20-25 MG tablet Take 1 Tab by mouth once daily. [facility] [phone](Branden) Active sertraline (ZOLOFT) 100 MG tablet Take 100 mg by mouth once daily. [facility] (Branden) Active tamsulosin CR 24hr (FLOMAX) 0.4 MG capsule Take 0.4 mg by mouth once daily. [facility] [phone] Take 30 minutes after a meal at the same time each day. Active naproxen (NAPROSYN) 500 MG tablet Take 1 Tab by mouth 2 times daily as needed for Pain. 20 Tab 0 03/06/2014 Active hydrocodone-elizabeth taminophen (NORCO) 5-325 MG tablet Take 1-2 Tabs by mouth every 6 hours as needed for Pain. 15 Tab 0 03/06/2014 Active diazepam (VALIUM) 5 MG tablet Take 1 Tab by mouth 3 times daily as needed for Spasms. 6 Tab 0 03/06/2014 Active Social History Tobacco Use Types Packs/Day Years Used Date Smoking Tobacco: Never Alcohol Use Standard Drinks/Week Comments No 0 (1 standard drink = 0.6 oz pur e alcohol) Sex and Gender Information Value Date Recorded Sex Assigned at Not on file Legal Sex Male 2:56 PM CDT Gender Identity Not on file Sexual Orientation Not on file Last Filed Vital Signs Vital Sign Reading Time Taken Comments Blood Pressure 162/83 03/06/2014 5:30 PM CDT Pulse 76 03/06/2014 3:11 PM CDT Temperature 36.6 C (97.9 F) 03/06/2014 3:11 PM CDT Respiratory Rate 18 03/06/2014 3:11 PM CDT Oxygen Saturation 98% 03/06/2014 5:30 PM CDT Inhaled Oxygen Concentration - - Weight 102.1 kg (225 lb) 03/06/2014 3:11 PM CDT Height 180.3 cm (5' 11) 03/06/2014 3:11 PM CDT Body Mass Index 31.38 03/06/2014 3:11 PM CDT Plan of Treatment Health Maintenance Due Date Last Done Comments COLOGUARD (AGES 45-75) - COL ON CA SCREENING 1968 COLON MONITORING 1968 COLONOSCOPY - COLON CA SCREENING 1968 CT COLONOGRAPHY - COLON CA SCREENING 1968 Colorectal Cancer Screening 1968 FIT - COLON CA SCREENING 1968 FLEX SIG - COLON CA SCREENING 1968 LIPID TESTING 1968 HIV SCREENING 1983 HEPATITIS C SCREENING 07/07/1986 DTAP/TDAP/TD VACCINES (1 - Tdap) 1987 HEPATITIS B VACCINE (1 of 3 - 19+ 3-dose series) 1987 PNEUMOCOCCAL VACCINE 50+ (1 of 1 - PCV) 2018 ZOSTER VACCINE (1 of 2) 2018 DEPRESSION SCREENING 06/01/2024 COVID-19 VACCINE (1 - 2023-2 5 season) 2025 INFLUENZA VACCINE (#1) 2025 HIB VACCINE Aged Out No longer eligi ble based on patient's age to complete this topic HPV VACCINE Aged Out No longer eligi ble based on patient's age to complete this topic MENINGOCOCCAL (Group B) VACC INE SHARED DECISION-MAKING Aged Out No longer eligibl e based on patient's age to complete this topic MENINGOCOCCAL GROUPS A/C/Y/W VACCINE Aged Out No longer eligible b ased on patient's age to complete this topic Insurance [facility] [employer]
--- OUTSIDE RECORDS SUMMARY | 2025-03-16 07:34 | XMS_ITS | Clinical Summary ---
Author Organization [facility] Address [address] [place] [address] Care Team Providers Care Head Automatic Sawyer Name Role Phone Tere Mckay MD Primary Care Provider [phone] Allergies No known active allergies Medications simvastatin 20 MG tablet Take 20 mg by mouth nightly at bedtime. Active busPIRone 10 MG tablet Take 10 mg by mouth 2 (two) times daily. Active Multiple Vitamin (MULTIVITAMIN ADULT OR) Active lisinopril 20 MG TABS 20 mg, hydroCHLOROthiazide 25 MG TABS 25 mg Take by mouth daily. Active Family History Medical History Relation Comments Cancer Father Diabetes Father Hypertension Mother Relation Status Comments Father Mother Social History Tobacco Use Types Packs/Day Years Used Date Smoking Tobacco: Never Smokeless Tobacco: Never Alcohol Use Standard Drinks/Week Comments Never 0 (1 standard drink = 0.6 oz pur e alcohol) Sex and Gender Information Value Date Recorded Sex Assigned at Not on file Legal Sex Male 7:14 AM CDT Gender Identity Not on file Sexual Orientation Not on file Last Filed Vital Signs Vital Sign Reading Time Taken Comments Blood Pressure 184/93 02/15/2021 8:30 AM CDT Pulse 49 02/15/2021 7:17 AM CDT Temperature 36.7 C (98.1 F) 02/15/2021 7:17 AM CDT Respiratory Rate 16 02/15/2021 7:17 AM CDT Oxygen Saturation 100% 02/15/2021 8:30 AM CDT Inhaled Oxygen Concentration - - Weight 102 kg (224 lb 13.9 oz) 02/15/2021 7:17 A M CDT Height 179.1 cm (5' 10.5) 02/15/2021 7:17 AM CD T Body Mass Index 31.81 02/15/2021 7:17 AM CDT Plan of Treatment Health Maintenance Due Date Last Done Comments Colorectal Cancer Screening Colonoscopy (10 Years) 1968 Annual Physical 1971 Hepatitis C 1986 Hepatitis B Vaccines (1 of 3 - 19+ 3-dose series) 1987 Pneumococcal Vaccine: 50+ Ye ars (1 of 1 - PCV) 2018 Zoster Vaccines (1 of 2) 2018 COVID-19 Vaccine (1 - 2023-2 5 season) 2025 Influenza Adult (#1) 2025 DTaP, Tdap and Td Vaccines ( 2 - Td or Tdap) 03/16/2027 03/16/2017 Hepatitis A Vaccines Aged Out No long er eligible based on patient's age to complete this topic Meningococcal B Vaccine Aged Out No l onger eligible based on patient's age to complete this topic Meningococcal Vaccine Aged Out No tracy dameon eligible based on patient's age to complete this topic RSV Immunizations Under 20 Months Aged Out No longer eligible based on patient's age to complete this topic Insurance [employer] Care Teams Head Automatic Sawyer Relationship Specialty Start Date End Date Tere Mckay MD [address] [place] [address] PCP - General FAMILY PRACTICE 02/15/21
[2025-03-16] MEDS: CLOPIDOGREL BISULFATE 300 MG TABLET PO (07:40)
[2025-03-16] MEDS: ASPIRIN 81 MG CHEWABLE TABLET PO (07:40)
[2025-03-16] MEDS: POTASSIUM CHLORIDE 20 MEQ ER TABLET 40 MEQ PO (08:17)
[2025-03-16 11:44] LABS: Troponin I 0.023 ng/mL (0.000-0.034)
--- NOTE | 2025-03-16 15:37 | P.HP_ITS ---
H&P: HPI History of Present Illness Date/Time: 03/16/25 15:37 Chief Complaint: Left-sided numbness Narrative: 54-year-old male past medical history of hypertension PTSD/anxiety hyperlipidemia presented to the ER on account of left-sided numbness he Are patient without that and 5:20 a.m. small airway was tried on stabbing headache accompanied with left-sided numbness and the presented to the ER for proper evaluation and care. Denies any chest pain palpitations no lightheadedness no loss of consciousness abdominal pain no diarrhea and no no poor oral intake and recent changes in medications. ER evaluation notable to% 8.3, pulse rate 55, respiratory rate 11, saturating 96% on room air, blood pressure 184/99 Labs notable for potassium 3.2, otherwise unremarkable. CT head CTA and neck chest x-ray unremarkable. Patient was admitted for evaluation CT Review of Systems Review of Systems: All other systems are reviewed and negative except as noted in the history above PMFSH Past Medical History Medical History Diabetes mellitus Hyperlipidemia Hypertension Appendicitis Surgical History Surgical History History of appendectomy Social History Social History Smoking status: Never smoker Alcohol intake: never Substance use: never Meds Home Medications and Allergies Home Medications ?Medication ?Instructions ?Recorded ?Confirmed ?Type amlodipine 2.5 mg tablet 2.5 mg PO DAILY 03/16/25 History buspirone 10 mg tablet 5 mg PO BID 03/16/25 5 History carvedilol 3.125 mg tablet 3.125 mg PO Q12H 03/16/25 1 History lisinopril 20 1 tablet PO DAILY@0630 03/1603/16/25 History mg-hydrochlorothiazide 25 mg tablet metformin 500 mg tablet,extended 500 mg PO QPM 5 03/16/25 History release 24 hr sertraline 100 mg tablet 100 mg PO Q24H 03/16/2503/01 History simvastatin 20 mg tablet 20 mg PO QPM 03/16/25 History Allergies Allergy/AdvReac Type Severity Reaction Status Date / Time No Known Allergies Allergy Verified 03/30/20 13:46 Vital Signs Vital Signs - 24 hr 03/16/25 06:33 03/16/25 06:33 03/16/25 06:33 Temperature 98.3 F Pulse Rate 55 L 52 L 52 L Respiratory Rate 11 L 13 14 Blood Pressure 184/99 H 184/99 H 184/99 H Pulse Oximetry 96 99 96 03/16/25 06:35 03/16/25 07:09 03/16/25 07:16 Temperature Pulse Rate 51 L 51 L 50 L Respiratory Rate 15 10 L Blood Pressure 152/80 H 165/86 H Pulse Oximetry 95 95 03/16/25 07:31 03/16/25 07:46 03/16/25 08:01 Temperature Pulse Rate 49 L 52 L 49 L Respiratory Rate 14 15 11 L Blood Pressure 159/86 H 151/96 H 175/96 H Pulse Oximetry 97 97 98 03/16/25 08:16 03/16/25 08:31 03/16/25 08:46 Temperature Pulse Rate 49 L 53 L 46 L Respiratory Rate 15 11 L 13 Blood Pressure 172/96 H 162/93 H 151/86 H Pulse Oximetry 98 98 99 03/16/25 09:01 03/16/25 09:16 03/16/25 11:09 Temperature Pulse Rate 46 L 51 L 50 L Respiratory Rate 11 L 13 16 Blood Pressure 173/95 H 172/100 H 160/82 H Pulse Oximetry 98 98 98 03/16/25 11:31 03/16/25 12:01 03/16/25 12:31 Temperature Pulse Rate 46 L 47 L 54 L Respiratory Rate 12 13 12 Blood Pressure 168/104 H 167/93 H 175/101 H Pulse Oximetry 99 99 97 03/16/25 13:01 03/16/25 13:31 03/16/25 14:01 Temperature Pulse Rate 58 L 58 L 52 L Respiratory Rate 15 16 12 Blood Pressure 172/83 H 161/102 H 150/91 H Pulse Oximetry 99 98 98 Exam Narrative: General: alert and comfortable Eyes: EOMI, PERRLA ENNT External ears normal, Neck is supple, no masses, Respiratory systems: Clear to auscultation Cardiovascular S1, S2, normal rhythm, no murmur, rub, or gallop; no thrill or palpable murmurs on palpation. Gastrointestinal: soft, non-tender, and non-distended abdomen with no masses; BS present Skin: no rash, lesions, ulcerations, subcutaneous nodules or induration Musculoskeletal: no abnormality and no tenderness, normal ROM Neurologic: Alert and oriented x3, non focal Mental Status Exam: normal affect H&P: Results Labs Labs: Short CBC 03/16/25 Range/Units 06:06 WBC 6.2 (4.5-10.0) K/mm3 Hgb 15.8 (14.0-18.0) g/dL Hct 45.5 (42.0-52.0) % Plt Count 149 L (150-375) k/mm3 BMP 03/16/25 03/16/25 06:06 06:11 Sodium 139 Potassium 3.2 L Chloride 100 Carbon Dioxide 32 H BUN 17 Creatinine 0.81 0.90 Glucose 155 H Calcium 8.8 Cardiac Enzymes 03/16/25 03/16/25 Range/Units 06:06 10:59 Troponin I 0.026 0.023 (0.000-0.034) ng/mL Liver Function 03/16/25 Range/Units 06:06 Total Bilirubin 0.9 (0.2-1.3) mg/dL AST 44 (17-59) U/L ALT 48 (6-50) U/L Alkaline Phosphatase 79 (38-126) U/L Albumin 4.3 (3.5-5.1) g/dL Assessment and Plan Assessment and plan (1) Left arm numbness: Code(s): R20.0 - Anesthesia of skin Status: Acute (2) Acute hypokalemia: Code(s): E87.6 - Hypokalemia Status: Acute Plan Left-sided numbness Symptoms started about 5:20 a.m. this morning, at the time of this encounter symptoms mostly resolved. CTA head and neck, CT head unremarkable. Echo, MRI brain A1c, lipid profile Continue aspirin, Plavix, allow permissive hypertension PT/OT/ST Neurology consulted Hypertension Patient admitted hypertension Anxiety/PTSD Continue medications we Hyperlipidemia Continue statin DVT prophylaxis subQ Lovenox Full code Surrogate decision maker is Nohemi Rothman Hospitalist [facility] Advance Care Plan I have confirmed that the patient's Advanced Care Plan is present, code status is documented, or surrogate decision maker is listed in patient medical record.: Yes Medication Reconciliation I have utilized all available resources to obtain, update and review the patients current medications (includes all prescriptions, OTC, herbals, cannabis, and nutritional supplements).: Yes
--- NOTE | 2025-03-16 16:45 | ADMGEN ---
This patient, Jung Rothman, was admitted to Medical Room 248-. Patient/family oriented to hospital policies and general routines including ID bracelet, bed and alarms, visiting hours, pain management, procedures, bathroom and other care routines, personal items, smoking policy, room service/diet, and visiting hours. Information on how to activate the Rapid Response Team has been discussed. Patient/Family are encouraged to report perceived risks to care and to ask questions if they do not understand what they are told or what they should do.
--- NOTE | 2025-03-16 18:15 | WPDNEURCNPN ---
Assessment and Plan Assessment and plan (1) Brain TIA: Code(s): G45.9 - Transient cerebral ischemic attack, unspecified Status: Acute (2) Diabetes mellitus: Code(s): E11.9 - Type 2 diabetes mellitus without complications Status: Acute (3) Hypertension: Code(s): I10 - Essential (primary) hypertension Status: Acute (4) Bradycardia, sinus: Code(s): R00.1 - Bradycardia, unspecified Status: Acute Plan At the time of the presentation emergency with heart rate was slow and blood pressure was high. 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 By then he is symptoms resolved within an hour so. He was given anti his platelets and a statin. His CT scan and CT angiogram did not show any abnormality. MRI of the brain is take indicated. Which should follow-up he has a cholesterol profile. If all is well he can be kept on dual antiplatelets and statin for 3 weeks and thereafter aspirin and statin to continue based upon the findings. 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 He became concerned that he might be having a stroke and came to the hospital. Symptoms lasted about an hour or so and then improved. He never had any symptoms like that in the past. He has history of diabetes mellitus. The ER physician did talk to me and based upon the risk factor of diabetes and hypertension 8 her decided to go ahead and give antiplatelets and patient is already on a statin which was continued. Patient had a CT scan of the brain and CT angiogram of the head and neck which did not show any significant abnormalities. There is no history of similar problem the past. This time when I saw him in the evening he was feeling better and he had no symptoms. Review of Systems Review of Systems: All systems reviewed & are unremarkable except as noted in HPI and below PMFSH Past Medical History Medical History (Updated 03/16/25 @ 18:19 by Rafa Araujo MD) Diabetes mellitus Hyperlipidemia Hypertension Appendicitis Surgical History Surgical History History of appendectomy Social History Social History Smoking status: Never smoker Alcohol intake: never Substance use: never Meds Home Medications and Allergies Home Medications ?Medication ?Instructions ?Recorded ?Confirmed ?Type amlodipine 2.5 mg tablet 2.5 mg PO DAILY 03/16/25 03/16/25 History buspirone 10 mg tablet 5 mg PO BID 03/16/25 03/16/25 History carvedilol 3.125 mg tablet 3.125 mg PO Q12H 03/16/25 03/16/25 History lisinopril 20 1 tablet PO DAILY@0630 03/16/25 03/16/25 History mg-hydrochlorothiazide 25 mg tablet metformin 500 mg tablet,extended 500 mg PO QPM 03/16/25 03/16/25 History release 24 hr sertraline 100 mg tablet 100 mg PO Q24H 03/16/25 03/16/25 History simvastatin 20 mg tablet 20 mg PO QPM 03/16/25 03/16/25 History Allergies Allergy/AdvReac Type Severity Reaction Status Date / Time No Known Allergies Allergy Verified 03/16/25 16:05 Vital Signs Vital Signs - 24 hr 03/16/25 06:33 03/16/25 06:33 03/16/25 06:33 Temperature 98.3 F Pulse Rate 55 L 52 L 52 L Respiratory Rate 11 L 13 14 Blood Pressure 184/99 H 184/99 H 184/99 H Pulse Oximetry 96 99 96 03/16/25 06:35 03/16/25 07:09 03/16/25 07:16 Temperature Pulse Rate 51 L 51 L 50 L Respiratory Rate 15 10 L Blood Pressure 152/80 H 165/86 H Pulse Oximetry 95 95 03/16/25 07:31 03/16/25 07:46 03/16/25 08:01 Temperature Pulse Rate 49 L 52 L 49 L Respiratory Rate 14 15 11 L Blood Pressure 159/86 H 151/96 H 175/96 H Pulse Oximetry 97 97 98 03/16/25 08:16 03/16/25 08:31 03/16/25 08:46 Temperature Pulse Rate 49 L 53 L 46 L Respiratory Rate 15 11 L 13 Blood Pressure 172/96 H 162/93 H 151/86 H Pulse Oximetry 98 98 99 03/16/25 09:01 03/16/25 09:16 03/16/25 11:09 Temperature Pulse Rate 46 L 51 L 50 L Respiratory Rate 11 L 13 16 Blood Pressure 173/95 H 172/100 H 160/82 H Pulse Oximetry 98 98 98 03/16/25 11:31 03/16/25 12:01 03/16/25 12:31 Temperature Pulse Rate 46 L 47 L 54 L Respiratory Rate 12 13 12 Blood Pressure 168/104 H 167/93 H 175/101 H Pulse Oximetry 99 99 97 03/16/25 13:01 03/16/25 13:31 03/16/25 14:01 Temperature Pulse Rate 58 L 58 L 52 L Respiratory Rate 15 16 12 Blood Pressure 172/83 H 161/102 H 150/91 H Pulse Oximetry 99 98 98 03/16/25 14:31 03/16/25 15:01 03/16/25 15:31 Temperature Pulse Rate 59 L 51 L 48 L Respiratory Rate 15 14 14 Blood Pressure 161/96 H 160/94 H 163/79 H Pulse Oximetry 99 98 98 03/16/25 16:01 Temperature Pulse Rate 50 L Respiratory Rate 13 Blood Pressure 161/96 H Pulse Oximetry 98 Exam Const: General: cooperative, healthy appearing and comfortable HENMT: Head: atraumatic Eyes: Alignment and Position: alignment normal and position normal EOM: EOMs intact bilaterally Neck: Neck: normal visual inspection Resp: Effort & Inspection: normal respiratory effort Skin: General skin exam: normal color Neuro: Cranial nerves: Yes CN's II-XII intact bilaterally, Yes facial symmetry and Yes Midline tongue present Cognition (Neuro): normal cognition Speech: normal speech Gait exam (Neuro): Normal gait present Coordination: [id number] test normal and Normal rapid alternating movements of the distal upper extremity present (Neuro) Extrem: General: normal to inspection Psych: Appearance: well kempt Mental Status: mental status grossly normal Speech and movement: Normal speech and movement present Affect: normal affect Thought process: Normal thought process present Thought content: Yes Normal thought content present Insight: Good insight present (Psych) Judgement: Good judgement present (Psych) Results Labs 03/16/25 06:06 03/16/25 06:11 Labs: Short CBC 03/16/25 Range/Units 06:06 WBC 6.2 (4.5-10.0) K/mm3 Hgb 15.8 (14.0-18.0) g/dL Hct 45.5 (42.0-52.0) % Plt Count 149 L (150-375) k/mm3 BMP 03/16/25 03/16/25 06:06 06:11 Sodium 139 Potassium 3.2 L Chloride 100 Carbon Dioxide 32 H BUN 17 Creatinine 0.81 0.90 Glucose 155 H Calcium 8.8 Cardiac Enzymes 03/16/25 03/16/25 Range/Units 06:06 10:59 Troponin I 0.026 0.023 (0.000-0.034) ng/mL Liver Function 03/16/25 Range/Units 06:06 Total Bilirubin 0.9 (0.2-1.3) mg/dL AST 44 (17-59) U/L ALT 48 (6-50) U/L Alkaline Phosphatase 79 (38-126) U/L Albumin 4.3 (3.5-5.1) g/dL Imaging Attestation: I personally reviewed and interpreted this imaging study as follows: (CT scan of brain and CT angiogram of the head and neck) My impression: No significant abnormal findings.
[2025-03-16] MEDS: ATORVASTATIN 40 MG TABLET PO (18:26)
[2025-03-16 20:32] LABS: Cholesterol 169 mg/dL (0-200); HDL Direct 24 mg/dL; Triglycerides 370 mg/dL (<150)
[2025-03-16 22:09] LABS: Hemoglobin A1C 5.9 % (<5.7)
[2025-03-16] MEDS: SERTRALINE HCL 50 MG TABLET 100 MG PO (22:25)
[2025-03-17] VITALS (10 sets, daily range): BP systolic 153–180; BP diastolic 82–94; PULSE 45–63; RESP 16–18; TEMP 36.2–36.8; O2SAT 98–99
--- NOTE | 2025-03-17 | ECHO_ITS ---
Patient Info Name: Jung Rothman Age: 54 years : 1970 Gender: Male Ht: 70 in Wt: 253 lbs BSA: 2.42 m2 HR: 50 bpm BP: 170 / 93 mmHg Technical Quality: Poor Exam Date: 03/17/2025 11:57 AM Patient Status: O Admit Date: 03/16/2025 Exam Type: CA echo dop bubble study w con Complete two-dimentional, color flow and Doppler transthoracic echocardiogram is performed with agitated saline and with contrast to opacify the left ventricle and to improve the delineation of the left ventricle endocardial borders. Staff Referring Physician: Elysia Delgadillo Hse Manager: Iron Cody III Attending Provider: Mando Garcia MD Contrast/Agitated Saline Contrast/Ag. Saline: Agitated Saline Amount: 12.00 ml Administered By: Iron Cody III Existing IV Access: Yes IV Access Condition: patent with no signs of infiltration Contrast/Ag. Saline: Definity Amount: 2.00 ml Administered By: Iron Cody III Existing IV Access: Yes IV Access Condition: patent with no signs of infiltration Summary 1. Poor windows for bubble study. Tech attempted bubble study but diagnostic quality is poor. Definity needed to view LV. 2. Technically difficult study, suboptimal image quality. Echo contrast was used. Borderline LV enlargement. Mild LVH. Normal LV systolic function, ejection fraction about 60%. Diastolic dysfunction is present. Mild biatrial enlargement. Bubble study is suboptimal, no evidence of a large right to left interatrial shunt. Normal mitral valve structure, no significant MR. Aortic valve is not well visualized, appears mildly sclerotic, no hemodynamically significant stenosis by Doppler. Unable to assess RVSP due to inadequate TR jet. Left Ventricular Outflow Tract Name Value Normal LVOT 2D LVOT Diameter 2.3 cm LVOT Doppler LVOT Peak Velocity 101 cm/s LVOT Peak Gradient 4 mmHg LVOT Mean Gradient 2 mmHg LVOT VTI 22 cm LVOT VTI/AV VTI Ratio 0.9 LVOT Stroke Volume 92 ml LVOT CO 4.5 l/min LVOT CI 1.8 l/min/m2 Pulmonic Valve Name Value Normal PV Doppler PV Peak Velocity 105 cm/s PV Peak Gradient 4 mmHg PV Mean Gradient 2 mmHg Mitral Valve Name Value Normal MV Doppler MV Peak Gradient 4 mmHg MV Mean Gradient 1 mmHg MV Area (Cont Eq VTI) 3.0 cm2 MV Diastolic Function MV E Peak Velocity 112 cm/s MV A Peak Velocity 103 cm/s MV E/A 1.1 MV Decel Time (PW) 211 ms MV Annular TDI MV E/e' (Septal) 14.3 MV E/e' (Lateral) 11.7 MV E/e' (Average) 13.0 Tricuspid Valve Name Value Normal TV Annular TDI TV Lateral Shalonda s' Velocity 11.5 cm/s >=9.5 Aortic Valve Name Value Normal AV Doppler AV Peak Velocity 109 cm/s AV Peak Gradient 5 mmHg AV Mean Gradient 2 mmHg AV VTI 23 cm AV Area (Cont Eq VTI) 4.0 cm2 >=3.0 AV Area (Cont Eq Eliot) 3.9 cm2 AV DI (Eliot) 0.92 AV Regurgitation 2D LVOT Area 4.2 cm2 Ventricles Name Value Normal LV Dimensions 2D/MM IVS Diastolic Thickness (2D) 1.1 cm 0.6-1.0 LVID Diastole (2D) 4.9 cm 4.2-5.8 LVIW Diastolic Thickness (2D) 1.2 cm 0.6-1.0 LVID Systole (2D) 3.6 cm 2.5-4.0 LVOT Diameter 2.3 cm LV Mass (2D Cubed) 213.19 g 88.00-224.00 LV Mass Index (2D Cubed) 88 g/m2 49-115 Relative Wall Thickness (2D) 0.48 <=0.42 LV Fractional Shortening/Ejection Fraction 2D/MM LV Fractional Shortening (2D) 27 % 25-43 LV EF (2D Teichholz) 53 % LV Diastolic Volume (4C MOD) 123 ml LV EF (4C MOD) 57 % LV Diastolic Volume (2C MOD) 128 ml LV EF (2C MOD) 58 % LV Diastolic Volume (BP MOD) 127 ml 62-150 LV Diastolic Volume Index (BP MOD) 52 ml/m2 34-74 LV Systolic Volume (BP MOD) 57 ml 21-61 LV Systolic Volume Index (BP MOD) 24 ml/m2 11-31 LV EF (BP MOD) 55 % 52-72 LV Diastolic Length (4C) 9.3 cm LV Systolic Length (4C) 8.0 cm LV Stroke Volume (4C MOD) 70 ml Atria Name Value Normal LA Dimensions LA Volume (4C A-L) 64 ml LA Volume (BP A-L) 61 ml RA Dimensions RA Systolic Major [place] Length (4C) 5.9 cm 2.1-2.7 RA Area (4C) 23.3 cm2 <=18.0 Report Signatures
[2025-03-17 06:09] LABS: Hematocrit 44.5 % (42.0-52.0); Hemoglobin 15.4 g/dL (14.0-18.0); Immature Granulocyte Percent A 0.3 % (0-0.5); Lymphocytes Absolute Auto 1.68 K/mm3 (0.9-3.2); Mean Corpuscular HGB Conc 34.6 g/dl (32-36); Mean Corpuscular Hemoglobin 29.5 pg (26-34); Mean Corpuscular Volume 85.2 fl (80-100); Nucleated Red Blood Cells Absolute Auto 0.000 K/mm3 (0.0-0.012); Nucleated Red Blood Cells Perc 0.0 % (0.0-0.2); Platelet Count Result 148 k/mm3 (150-375); Red Blood Count 5.22 M/mm3 (4.6-6.20); White Blood Count 6.4 K/mm3 (4.5-10.0)
[2025-03-17 06:28] LABS: Hemoglobin A1C 6.0 % (<5.7)
[2025-03-17 06:38] LABS: Alanine Aminotransferase 44 U/L (6-50); Albumin Level 4.1 g/dL (3.5-5.1); Alkaline Phosphatase 71 U/L (38-126); Anion Gap 6 mmol/L (4-12); Aspartate Amino Transferase 42 U/L (17-59); Bilirubin,Total 0.8 mg/dL (0.2-1.3); Blood Urea Nitrogen 18 mg/dL (9-20); Calcium 8.8 mg/dL (8.4-10.2); Carbon Dioxide 33 mmol/L (22-30); Chloride 100 mmol/L (98-107); Cholesterol 175 mg/dL (0-200); Estimated CRCL calculation 112 ml/min; Estimated Glomerular Filt Rate > 60; Glucose 143 mg/dL (65-110); HDL Direct 23 mg/dL; Magnesium 2.0 mg/dL (1.6-2.3); Potassium 3.1 mmol/L (3.4-5.0); Sodium 139 mmol/L (137-145); Total Protein 7.3 g/dL (6.3-8.2); Triglycerides 341 mg/dL (<150)
--- NOTE | 2025-03-17 08:04 | PCSTNOTE ---
Please refer to the Bedside Swallow Evaluation in the EMR. Please note, silent aspiration cannot be ruled out at bedside. The above pt, admitted with a diagnosis of TIA, rule out CVA, was seen for a swallow evaluation at bedside. Re swallowing: pt reports: he ate dinner last night without difficulty, but dysphagia was reportedly an initial symptom. Pt denies previous dysphagia re choking or coughing during meals. Pt was able to dry swallow on command and exhibited a clear vocal quality before oral trials. The oral mucosa is normal, and the natural dentition is in good condition. Oral peripheral exam revealed lingual and labial structures to be normal. Pt I positioned himself upright at the bedside for the evaluation. He was tested with thin liquids, pudding, and a cracker in uncontrolled amounts. The oral stages appeared WNL. No oral leakage or pocketing was noted. During the pharyngeal stage, the swallow reflex appeared prompt & laryngeal elevation adequate. No overt s/s of aspiration were exhibited; however, silent aspiration cannot be ruled out at bedside. General impression is normal swallow ability. Recommendation: Continue current (regular) diet. Thank you for this referral.
[2025-03-17] MEDS: ENOXAPARIN 40 MG/0.4 ML SYRINGE SUB-Q (09:06)
[2025-03-17] MEDS: SIMVASTATIN 20 MG TABLET PO (09:06)
[2025-03-17] MEDS: CLOPIDOGREL BISULFATE 75 MG TABLET PO (09:06)
[2025-03-17] MEDS: ATORVASTATIN 40 MG TABLET PO (09:06)
[2025-03-17] MEDS: ASPIRIN 81 MG ENTERIC TABLET PO (09:06)
--- NOTE | 2025-03-17 11:50 | PM.IMPN ---
Progress Note: A&P Assessment and Plan (1) Left arm numbness: Code(s): R20.0 - Anesthesia of skin Status: Acute (2) Acute hypokalemia: Code(s): E87.6 - Hypokalemia Status: Acute Plan Left-sided numbness, resolved TIA Symptoms started about 5:20 a.m. this morning, at the time of this encounter symptoms mostly resolved. CTA head and neck, CT head unremarkable. MRI brain no acute changes, A1c 6.0, LDL 76 Continue aspirin, Plavix, allow permissive hypertension ECHO pending Cardiology consulted for possible event monitor on discharge Neurology following PT/OT/ST evaluation no needs noted Hypertension Patient admitted hypertension Anxiety/PTSD Continue medications we Hyperlipidemia Continue statin DVT prophylaxis subQ Lovenox Full code Subjective Date/time seen: 03/17/25 11:50 Interval history: Comfortable at bedside K 3.1, MRI no acute changes ECHO pending cardiology consulted for possible event monitor on discharge Review of Systems Review of Systems: All other systems are reviewed and negative except as noted in the history above Exam Narrative: General: alert and comfortable Eyes: EOMI, PERRLA ENNT External ears normal, Neck is supple, no masses, Respiratory systems: Clear to auscultation Cardiovascular S1, S2, normal rhythm, no murmur, rub, or gallop; no thrill or palpable murmurs on palpation. Gastrointestinal: soft, non-tender, and non-distended abdomen with no masses; BS present Skin: no rash, lesions, ulcerations, subcutaneous nodules or induration Musculoskeletal: no abnormality and no tenderness, normal ROM Neurologic: Alert and oriented x3, non focal Mental Status Exam: normal affect Objective Data Vital Signs Vital Signs: Vital Signs - 24 hr 03/16/25 12:01 03/16/25 12:31 03/16/25 13:01 Temperature Pulse Rate 47 L 54 L 58 L Respiratory Rate 13 12 15 Blood Pressure 167/93 H 175/101 H 172/83 H Pulse Oximetry 99 97 99 Oxygen Delivery 03/16/25 13:31 03/16/25 14:01 03/16/25 14:31 Temperature Pulse Rate 58 L 52 L 59 L Respiratory Rate 16 12 15 Blood Pressure 161/102 H 150/91 H 161/96 H Pulse Oximetry 98 98 99 Oxygen Delivery 03/16/25 15:01 03/16/25 15:31 03/16/25 16:01 Temperature Pulse Rate 51 L 48 L 50 L Respiratory Rate 14 14 13 Blood Pressure 160/94 H 163/79 H 161/96 H Pulse Oximetry 98 98 98 Oxygen Delivery 03/16/25 17:00 03/16/25 21:26 03/16/25 21:30 Temperature 97.1 F L Pulse Rate 60 Respiratory Rate 16 Blood Pressure 139/63 Pulse Oximetry 100 Oxygen Delivery Room Air Room Air 03/16/25 23:48 03/17/25 00:00 03/17/25 04:00 Temperature Pulse Rate 53 L 47 L 45 L Respiratory Rate Blood Pressure Pulse Oximetry Oxygen Delivery 03/17/25 06:00 03/17/25 09:14 Temperature 97.2 F L Pulse Rate 50 L Respiratory Rate 18 Blood Pressure 170/93 H Pulse Oximetry 98 Oxygen Delivery Room Air Intake/Output Intake/Output: Intake & Output 03/14/25 03/15/25 03/16/25 03/17/25 23:59 23:59 23:59 23:59 Intake Total 240 400 Balance 240 400 Meds/Results Medications: Active Medications Generic Name Dose Route Start Last Admin Trade Name Freq PRN Reason Stop Dose Admin Aspirin 81 mg 03/17/25 09:00 03/17/25 09:06 Aspirin 81 Mg Enteric Tablet PO 81 mg QAM MARCELLO Administration Atorvastatin Calcium 40 mg 03/16/25 15:45 03/17/25 09:06 Atorvastatin 40 Mg Tablet PO 40 mg DAILY MARCELLO Administration Buspirone HCl 5 mg 03/16/25 21:50 03/17/25 09:06 Buspirone Hcl 5 Mg Tablet PO 5 mg BID MARCELLO Administration Clopidogrel Bisulfate 75 mg 03/17/25 09:00 03/17/25 09:06 Clopidogrel Bisulfate 75 Mg Tablet PO 75 mg QAM MARCELLO Administration Dextrose 12.5 gm 03/16/25 07:43 Dextrose 50% 25 Gm/50 Ml Syringe IV PUSH PRN PRN Hypoglycemia Protocol Enoxaparin Sodium 40 mg 03/17/25 09:00 03/17/25 09:06 Enoxaparin 40 Mg/0.4 Ml Syringe SUB-Q 40 mg DAILY MARCELLO Administration Glucagon 1 mg 03/16/25 07:43 Glucagon For Inj 1 Mg Vial IM PRN PRN Hypoglycemia Protocol Glucose 15 gm 03/16/25 07:43 Glucose Oral Gel 15 Gm Of Glucse In 37.5 Gm Tube PO PRN PRN Hypoglycemia Protocol Dextrose 1,000 mls @ 100 mls/hr 03/16/25 07:43 Dextrose 5% 1,000 Ml IVPB PRN PRN Hypoglycemia Protocol Potassium Chloride 20 meq/ 510 mls @ 130 mls/hr 03/17/25 11:49 Sodium Chloride IVPB 03/17/25 15:44 ONCE ONE Insulin Aspart 2 - 5 units 03/17/25 12:00 Insulin Aspart (*Bkc) 100 Units/Ml SUB-Q TIDWM MARCELLO Protocol Insulin Glargine 17 units 03/16/25 21:00 03/16/25 21:50 Insulin Glargine (*Bkc) 100 Units/Ml 0.15 units/kg (17 units) Not Given SUB-Q HS MARCELLO Perflutren Lipid Microsphere 0 ml 03/16/25 15:34 Perflutren Lipid Microspheres 1.5 Ml Vial Diluted To 10 Ml Total Volume IV PUSH 03/19/25 15:35 ONCE PRN adequate visualization Protocol Potassium Chloride 40 meq 03/17/25 11:49 Potassium Chloride 20 Meq Packet (For Liquid) PO 03/17/25 11:50 ONCE ONE Sertraline HCl 100 mg 03/16/25 21:50 03/16/25 22:25 Sertraline Hcl 50 Mg Tablet PO 100 mg QHS MARCELLO Administration Simvastatin 20 mg 03/17/25 09:00 03/17/25 09:06 Simvastatin 20 Mg Tablet PO 20 mg QAM MARCELLO Administration Radiology Results: ITS Impressions Head CT 03/16/25 06:15 IMPRESSION: 1. No acute intracranial findings. Chest X-Ray 03/16/25 06:26 IMPRESSION: 1. No acute cardiopulmonary findings given portable technique. Head/Neck CTA 03/16/25 06:27 IMPRESSION: CTA NECK: 1. No acute findings. CTA HEAD: 1. No acute findings. Brain MRI 03/17/25 08:40 IMPRESSION: 1. Normal aging brain. Labs Labs: Laboratory Results - last 24 hr 03/16/25 03/16/25 03/16/25 06:06 12:07 16:48 WBC RBC Hgb Hct MCV MCH MCHC RDW Plt Count MPV Immature Gran % (Auto) Neut % (Auto) Lymph % (Auto) [place] % (Auto) Eos % (Auto) Baso % (Auto) Lymph # (Auto) [place] # (Auto) Eos # (Auto) Baso # (Auto) Abs Immat Gran (auto) Absolute Neuts (auto) Absolute Nucleated RBC Nucleated RBC % Sodium Potassium Chloride Carbon Dioxide Anion Gap BUN Creatinine Estim Creat Clear Calc Estimated GFR Glucose POC Capillary Glucose 103 151 H Hemoglobin A1c 5.9 H Calcium Magnesium Total Bilirubin AST ALT Alkaline Phosphatase Total Protein Albumin Triglycerides 370 H Cholesterol 169 LDL Cholesterol Direct 64 HDL Direct 24 03/16/25 03/17/25 03/17/25 21:30 05:31 07:46 WBC 6.4 RBC 5.22 Hgb 15.4 Hct 44.5 MCV 85.2 MCH 29.5 MCHC 34.6 RDW 12.8 Plt Count 148 L MPV 9.5 Immature Gran % (Auto) 0.3 Neut % (Auto) 62.4 Lymph % (Auto) 26.1 [place] % (Auto) 6.2 Eos % (Auto) 4.4 Baso % (Auto) 0.6 Lymph # (Auto) 1.68 [place] # (Auto) 0.4 Eos # (Auto) 0.3 Baso # (Auto) 0.0 Abs Immat Gran (auto) 0.02 Absolute Neuts (auto) 4.0 Absolute Nucleated RBC 0.000 Nucleated RBC % 0.0 Sodium 139 Potassium 3.1 L Chloride 100 Carbon Dioxide 33 H Anion Gap 6 BUN 18 Creatinine 0.82 Estim Creat Clear Calc 112 Estimated GFR > 60 Glucose 143 H POC Capillary Glucose 148 H 159 H Hemoglobin A1c 6.0 H Calcium 8.8 Magnesium 2.0 Total Bilirubin 0.8 AST 42 ALT 44 Alkaline Phosphatase 71 Total Protein 7.3 Albumin 4.1 Triglycerides 341 H Cholesterol 175 LDL Cholesterol Direct 76 HDL Direct 23
[2025-03-17] MEDS: POTASSIUM CHLORIDE 20 MEQ PACKET (FOR LIQUID) 40 MEQ PO (12:49)
[2025-03-17] MEDS: KCL 20 MEQ/SW 100 ML 100 ML 50 MEQ IVPB (12:49)
[2025-03-17] MEDS: PERFLUTREN LIPID MICROSPHERES 1.5 ML VIAL DILUTED TO 10 ML TOTAL VOLUME IV PUSH (13:04)
--- NOTE | 2025-03-17 13:05 | IVDEFINITY ---
Prior to administration of IV Definity the patient was educated on the risks and benefits of the imaging enhancing agent including potential adverse side effects. The patient verbalized understanding. Allergies were verified. No exclusion criteria were identified and at least one of the following inclusion criteria were met: 1) physician request, 2) patient technically difficult to image (per the [place] [employer] guidelines of two or more segments not discernable within the apical view), or 3) questionable left ventricular function. ?
[2025-03-17] MEDS: SERTRALINE HCL 50 MG TABLET 100 MG PO (20:57)
[2025-03-18] VITALS (12 sets, daily range): BP systolic 158–184; BP diastolic 81–99; PULSE 47–65; RESP 16–20; TEMP 36.3–36.6; O2SAT 97–100
[2025-03-18 05:31] LABS: Hematocrit 45.1 % (42.0-52.0); Hemoglobin 15.6 g/dL (14.0-18.0); Immature Granulocyte Percent A 0.3 % (0-0.5); Lymphocytes Absolute Auto 1.90 K/mm3 (0.9-3.2); Mean Corpuscular HGB Conc 34.6 g/dl (32-36); Mean Corpuscular Hemoglobin 29.5 pg (26-34); Mean Corpuscular Volume 85.3 fl (80-100); Nucleated Red Blood Cells Absolute Auto 0.000 K/mm3 (0.0-0.012); Nucleated Red Blood Cells Perc 0.0 % (0.0-0.2); Platelet Count Result 144 k/mm3 (150-375); Red Blood Count 5.29 M/mm3 (4.6-6.20); White Blood Count 7.2 K/mm3 (4.5-10.0)
[2025-03-18 05:52] LABS: Alanine Aminotransferase 44 U/L (6-50); Albumin Level 4.1 g/dL (3.5-5.1); Alkaline Phosphatase 71 U/L (38-126); Anion Gap 7 mmol/L (4-12); Aspartate Amino Transferase 42 U/L (17-59); Bilirubin,Total 1.0 mg/dL (0.2-1.3); Blood Urea Nitrogen 19 mg/dL (9-20); Calcium 8.6 mg/dL (8.4-10.2); Carbon Dioxide 30 mmol/L (22-30); Chloride 102 mmol/L (98-107); Estimated CRCL calculation 110 ml/min; Estimated Glomerular Filt Rate > 60; Glucose 131 mg/dL (65-110); Magnesium 2.0 mg/dL (1.6-2.3); Potassium 3.4 mmol/L (3.4-5.0); Sodium 139 mmol/L (137-145); Total Protein 7.3 g/dL (6.3-8.2)
[2025-03-18] MEDS: SIMVASTATIN 20 MG TABLET PO (09:44)
[2025-03-18] MEDS: ENOXAPARIN 40 MG/0.4 ML SYRINGE SUB-Q (09:44)
[2025-03-18] MEDS: ASPIRIN 81 MG ENTERIC TABLET PO (09:44)
[2025-03-18] MEDS: ATORVASTATIN 40 MG TABLET PO (09:44)
[2025-03-18] MEDS: CLOPIDOGREL BISULFATE 75 MG TABLET PO (09:44)
--- NOTE | 2025-03-18 15:10 | PCOTNOTE ---
Attempted to see pt. for occupational therapy evaluation. Pt. is independent in room and reports symptoms have resolved, with no OT related concerns. PT evaluation notes pt. as independent and at baseline. Spoke with nursing who also confirmed and is in agreement. Cancelling OT orders.
--- NOTE | 2025-03-18 15:21 | PM.IMPN ---
Progress Note: A&P Assessment and Plan (1) Left arm numbness: Code(s): R20.0 - Anesthesia of skin Status: Acute (2) Acute hypokalemia: Code(s): E87.6 - Hypokalemia Status: Acute Plan Left-sided numbness, resolved TIA Symptoms started about 5:20 a.m. this morning, at the time of this encounter symptoms mostly resolved. CTA head and neck, CT head unremarkable. MRI brain no acute changes, A1c 6.0, LDL 76 Continue aspirin, Plavix ECHO pending Event monitor ready for discharge Neurology following PT/OT/ST evaluation no needs noted Awaiting ECHO for discharge Hypertension restarted home meds Anxiety/PTSD Continue medications we Hyperlipidemia Continue statin DVT prophylaxis subQ Lovenox Full code Subjective Date/time seen: 03/18/25 15:21 Interval history: Comfortable at bedside ECHO pending Review of Systems Review of Systems: All other systems are reviewed and negative except as noted in the history above Exam Narrative: General: alert and comfortable Eyes: EOMI, PERRLA ENNT External ears normal, Neck is supple, no masses, Respiratory systems: Clear to auscultation Cardiovascular S1, S2, normal rhythm, no murmur, rub, or gallop; no thrill or palpable murmurs on palpation. Gastrointestinal: soft, non-tender, and non-distended abdomen with no masses; BS present Skin: no rash, lesions, ulcerations, subcutaneous nodules or induration Musculoskeletal: no abnormality and no tenderness, normal ROM Neurologic: Alert and oriented x3, non focal Mental Status Exam: normal affect Objective Data Vital Signs Vital Signs: Vital Signs - 24 hr 03/17/25 16:00 03/17/25 18:39 03/17/25 20:00 Temperature Pulse Rate 53 L Respiratory Rate Blood Pressure 164/89 H Pulse Oximetry Oxygen Delivery Room Air 03/17/25 20:00 03/17/25 21:21 03/18/25 04:00 Temperature 98.2 F Pulse Rate 46 L 55 L 51 L Respiratory Rate 16 Blood Pressure 153/82 H Pulse Oximetry 99 Oxygen Delivery 03/18/25 06:00 03/18/25 08:00 03/18/25 08:00 Temperature 97.6 F Pulse Rate 52 L 52 L Respiratory Rate 20 Blood Pressure 184/94 H Pulse Oximetry 97 Oxygen Delivery Room Air 03/18/25 12:00 03/18/25 12:42 03/18/25 12:46 Temperature Pulse Rate 65 51 L 51 L Respiratory Rate Blood Pressure 175/99 H Pulse Oximetry 99 Oxygen Delivery Intake/Output Intake/Output: Intake & Output 03/15/25 03/16/25 03/17/25 03/18/25 23:59 23:59 23:59 23:59 Intake Total 240 980 740 Balance 240 980 740 Meds/Results Medications: Active Medications Generic Name Dose Route Start Last Admin Trade Name Freq PRN Reason Stop Dose Admin Amlodipine Besylate 2.5 mg 03/18/25 09:55 03/18/25 12:47 Amlodipine Besylate 2.5 Mg Tablet PO 2.5 mg DAILY MARCELLO Administration Aspirin 81 mg 03/17/25 09:00 03/18/25 09:44 Aspirin 81 Mg Enteric Tablet PO 81 mg QAM MARCELLO Administration Atorvastatin Calcium 40 mg 03/16/25 15:45 03/18/25 09:44 Atorvastatin 40 Mg Tablet PO 40 mg DAILY MARCELLO Administration Buspirone HCl 5 mg 03/16/25 21:50 03/18/25 09:44 Buspirone Hcl 5 Mg Tablet PO 5 mg BID MARCELLO Administration Carvedilol 3.125 mg 03/18/25 09:55 03/18/25 12:46 Carvedilol 3.125 Mg Tablet PO 3.125 mg Q12H MARCELLO Administration Clopidogrel Bisulfate 75 mg 03/17/25 09:00 03/18/25 09:44 Clopidogrel Bisulfate 75 Mg Tablet PO 75 mg QAM MARCELLO Administration Dextrose 12.5 gm 03/16/25 07:43 Dextrose 50% 25 Gm/50 Ml Syringe IV PUSH PRN PRN Hypoglycemia Protocol Enoxaparin Sodium 40 mg 03/17/25 09:00 03/18/25 09:44 Enoxaparin 40 Mg/0.4 Ml Syringe SUB-Q 40 mg DAILY MARCELOL Administration Glucagon 1 mg 03/16/25 07:43 Glucagon For Inj 1 Mg Vial IM PRN PRN Hypoglycemia Protocol Glucose 15 gm 03/16/25 07:43 Glucose Oral Gel 15 Gm Of Glucse In 37.5 Gm Tube PO PRN PRN Hypoglycemia Protocol Dextrose 1,000 mls @ 100 mls/hr 03/16/25 07:43 Dextrose 5% 1,000 Ml IVPB PRN PRN Hypoglycemia Protocol Insulin Aspart 2 - 5 units 03/17/25 12:00 03/18/25 12:52 Insulin Aspart (*Bkc) 100 Units/Ml SUB-Q Not Given T[facility] Protocol Insulin Glargine 10 units 03/17/25 21:00 03/17/25 20:58 Insulin Glargine (*Bkc) 100 Units/Ml SUB-Q Not Given HS MARCELLO Lisinopril 20 mg 03/18/25 11:00 03/18/25 12:47 Lisinopril 20 Mg Tablet PO 20 mg DAILY@0630 MARCELLO Administration Sertraline HCl 100 mg 03/16/25 21:50 03/17/25 20:57 Sertraline Hcl 50 Mg Tablet PO 100 mg QHS MARCELLO Administration Simvastatin 20 mg 03/17/25 09:00 03/18/25 09:44 Simvastatin 20 Mg Tablet PO 20 mg QAM MARCELLO Administration Radiology Results: ITS Impressions Head CT 03/16/25 06:15 IMPRESSION: 1. No acute intracranial findings. Chest X-Ray 03/16/25 06:26 IMPRESSION: 1. No acute cardiopulmonary findings given portable technique. Head/Neck CTA 03/16/25 06:27 IMPRESSION: CTA NECK: 1. No acute findings. CTA HEAD: 1. No acute findings. Brain MRI 03/17/25 08:40 IMPRESSION: 1. Normal aging brain. Labs Labs: Laboratory Results - last 24 hr 03/17/25 03/17/25 03/18/25 17:05 21:16 05:07 WBC 7.2 RBC 5.29 Hgb 15.6 Hct 45.1 MCV 85.3 MCH 29.5 MCHC 34.6 RDW 12.7 Plt Count 144 L MPV 9.2 Immature Gran % (Auto) 0.3 Neut % (Auto) 62.8 Lymph % (Auto) 26.4 [place] % (Auto) 6.0 Eos % (Auto) 3.8 Baso % (Auto) 0.7 Lymph # (Auto) 1.90 [place] # (Auto) 0.4 Eos # (Auto) 0.3 Baso # (Auto) 0.1 Abs Immat Gran (auto) 0.02 Absolute Neuts (auto) 4.5 Absolute Nucleated RBC 0.000 Nucleated RBC % 0.0 Sodium 139 Potassium 3.4 Chloride 102 Carbon Dioxide 30 Anion Gap 7 BUN 19 Creatinine 0.83 Estim Creat Clear Calc 110 Estimated GFR > 60 Glucose 131 H POC Capillary Glucose 112 H 138 H Calcium 8.6 Magnesium 2.0 Total Bilirubin 1.0 AST 42 ALT 44 Alkaline Phosphatase 71 Total Protein 7.3 Albumin 4.1 03/18/25 03/18/25 08:38 12:06 WBC RBC Hgb Hct MCV MCH MCHC RDW Plt Count MPV Immature Gran % (Auto) Neut % (Auto) Lymph % (Auto) [place] % (Auto) Eos % (Auto) Baso % (Auto) Lymph # (Auto) [place] # (Auto) Eos # (Auto) Baso # (Auto) Abs Immat Gran (auto) Absolute Neuts (auto) Absolute Nucleated RBC Nucleated RBC % Sodium Potassium Chloride Carbon Dioxide Anion Gap BUN Creatinine Estim Creat Clear Calc Estimated GFR Glucose POC Capillary Glucose 125 H 120 H Calcium Magnesium Total Bilirubin AST ALT Alkaline Phosphatase Total Protein Albumin
[2025-03-18] MEDS: SERTRALINE HCL 50 MG TABLET 100 MG PO (21:19)
[2025-03-18] MEDS: INSULIN GLARGINE (*BKC) 100 UNITS/ML 10 UNITS SUB-Q (21:20)
[2025-03-19] VITALS (11 sets, daily range): BP systolic 150–176; BP diastolic 87–101; PULSE 43–64; RESP 16–18; TEMP 36.5; O2SAT 97–99
[2025-03-19 05:09] LABS: Hematocrit 44.3 % (42.0-52.0); Hemoglobin 15.5 g/dL (14.0-18.0); Immature Granulocyte Percent A 0.3 % (0-0.5); Immature Platelet Fraction Pct 1.7 % (0.9-11.2); Lymphocytes Absolute Auto 1.88 K/mm3 (0.9-3.2); Mean Corpuscular HGB Conc 35.0 g/dl (32-36); Mean Corpuscular Hemoglobin 29.6 pg (26-34); Mean Corpuscular Volume 84.5 fl (80-100); Nucleated Red Blood Cells Absolute Auto 0.000 K/mm3 (0.0-0.012); Nucleated Red Blood Cells Perc 0.0 % (0.0-0.2); Platelet Count Result 166 k/mm3 (150-375); Red Blood Count 5.24 M/mm3 (4.6-6.20); White Blood Count 7.4 K/mm3 (4.5-10.0)
[2025-03-19 05:34] LABS: Alanine Aminotransferase 51 U/L (6-50); Albumin Level 4.0 g/dL (3.5-5.1); Alkaline Phosphatase 66 U/L (38-126); Anion Gap 6 mmol/L (4-12); Aspartate Amino Transferase 45 U/L (17-59); Bilirubin,Total 0.9 mg/dL (0.2-1.3); Blood Urea Nitrogen 16 mg/dL (9-20); Calcium 8.7 mg/dL (8.4-10.2); Carbon Dioxide 29 mmol/L (22-30); Chloride 104 mmol/L (98-107); Estimated CRCL calculation 110 ml/min; Estimated Glomerular Filt Rate > 60; Glucose 127 mg/dL (65-110); Magnesium 2.0 mg/dL (1.6-2.3); Potassium 3.3 mmol/L (3.4-5.0); Sodium 139 mmol/L (137-145); Total Protein 7.1 g/dL (6.3-8.2)
[2025-03-19] MEDS: ATORVASTATIN 40 MG TABLET PO (08:59)
[2025-03-19] MEDS: ASPIRIN 81 MG ENTERIC TABLET PO (08:59)
[2025-03-19] MEDS: ENOXAPARIN 40 MG/0.4 ML SYRINGE SUB-Q (08:59)
[2025-03-19] MEDS: SIMVASTATIN 20 MG TABLET PO (08:59)
[2025-03-19] MEDS: CLOPIDOGREL BISULFATE 75 MG TABLET PO (09:00)
--- NOTE | 2025-03-19 10:08 | P.PNIM_ITS ---
Progress Note: A&P Assessment and Plan (1) Left arm numbness: Code(s): R20.0 - Anesthesia of skin Status: Acute (2) Acute hypokalemia: Code(s): E87.6 - Hypokalemia Status: Acute Plan Left-sided numbness, resolved TIA Symptoms started about 5:20 a.m. this morning, at the time of this encounter symptoms mostly resolved. CTA head and neck, CT head unremarkable. MRI brain no acute changes, A1c 6.0, LDL 76 Continue aspirin, Plavix ECHO pending Event monitor ready for discharge Neurology following PT/OT/ST evaluation no needs noted Awaiting ECHO for discharge Hypertension restarted home meds Anxiety/PTSD Continue medications we Hyperlipidemia Continue statin DM2 A1c 6.0 On metformin at home continue SSI with accucheks and Lantus 10 units daily DVT prophylaxis subQ Lovenox Full code Subjective Date/time seen: 03/19/25 10:08 Interval history: Comfortable at bedside ECHO pending Review of Systems Review of Systems: All other systems are reviewed and negative except as noted in the history above Exam Narrative: General: alert and comfortable Eyes: EOMI, PERRLA ENNT External ears normal, Neck is supple, no masses, Respiratory systems: Clear to auscultation Cardiovascular S1, S2, normal rhythm, no murmur, rub, or gallop; no thrill or palpable murmurs on palpation. Gastrointestinal: soft, non-tender, and non-distended abdomen with no masses; BS present Skin: no rash, lesions, ulcerations, subcutaneous nodules or induration Musculoskeletal: no abnormality and no tenderness, normal ROM Neurologic: Alert and oriented x3, non focal Mental Status Exam: normal affect Objective Data Vital Signs Vital Signs: Vital Signs - 24 hr 03/18/25 12:00 03/18/25 12:42 03/18/25 12:46 Temperature Pulse Rate 65 51 L 51 L Respiratory Rate Blood Pressure 175/99 H Pulse Oximetry 99 Oxygen Delivery 03/18/25 14:00 03/18/25 16:00 03/18/25 20:00 Temperature 97.3 F L Pulse Rate 55 L 50 L 53 L Respiratory Rate 16 Blood Pressure 162/81 H Pulse Oximetry 100 Oxygen Delivery 03/18/25 21:15 03/18/25 21:16 03/18/25 22:17 Temperature 97.9 F Pulse Rate 47 L 47 L Respiratory Rate 17 Blood Pressure 158/85 H Pulse Oximetry 100 99 Oxygen Delivery Room Air 03/19/25 00:00 03/19/25 04:00 03/19/25 05:22 Temperature 97.7 F Pulse Rate 48 L 43 L 64 Respiratory Rate 18 Blood Pressure 176/101 H Pulse Oximetry 99 Oxygen Delivery 03/19/25 08:55 Temperature Pulse Rate 51 L Respiratory Rate Blood Pressure 171/89 H Pulse Oximetry 97 Oxygen Delivery Intake/Output Intake/Output: Intake & Output 03/16/25 03/17/25 03/18/25 03/19/25 23:59 23:59 23:59 23:59 Intake Total 049 173 7111 450 Balance 021 564 4492 450 Meds/Results Medications: Active Medications Generic Name Dose Route Start Last Admin Trade Name Freq PRN Reason Stop Dose Admin Amlodipine Besylate 5 mg 03/19/25 09:00 03/19/25 09:01 Amlodipine Besylate 5 Mg Tablet PO 5 mg DAILY MARCELLO Administration Aspirin 81 mg 03/17/25 09:00 03/19/25 08:59 Aspirin 81 Mg Enteric Tablet PO 81 mg QAM MARCELLO Administration Atorvastatin Calcium 40 mg 03/16/25 15:45 03/19/25 08:59 Atorvastatin 40 Mg Tablet PO 40 mg DAILY MARCELLO Administration Buspirone HCl 5 mg 03/16/25 21:50 03/19/25 08:59 Buspirone Hcl 5 Mg Tablet PO 5 mg BID MARCELLO Administration Carvedilol 3.125 mg 03/18/25 09:55 03/18/25 21:16 Carvedilol 3.125 Mg Tablet PO Not Given Q12H MARCELLO Clopidogrel Bisulfate 75 mg 03/17/25 09:00 03/19/25 09:00 Clopidogrel Bisulfate 75 Mg Tablet PO 75 mg QAM MARCELLO Administration Dextrose 12.5 gm 03/16/25 07:43 Dextrose 50% 25 Gm/50 Ml Syringe IV PUSH PRN PRN Hypoglycemia Protocol Enoxaparin Sodium 40 mg 03/17/25 09:00 03/19/25 08:59 Enoxaparin 40 Mg/0.4 Ml Syringe SUB-Q 40 mg DAILY MARCELLO Administration Glucagon 1 mg 03/16/25 07:43 Glucagon For Inj 1 Mg Vial IM PRN PRN Hypoglycemia Protocol Glucose 15 gm 03/16/25 07:43 Glucose Oral Gel 15 Gm Of Glucse In 37.5 Gm Tube PO PRN PRN Hypoglycemia Protocol Dextrose 1,000 mls @ 100 mls/hr 03/16/25 07:43 Dextrose 5% 1,000 Ml IVPB PRN PRN Hypoglycemia Protocol Insulin Aspart 2 - 5 units 03/17/25 12:00 03/19/25 08:57 Insulin Aspart (*Bkc) 100 Units/Ml SUB-Q Not Given TIDWM MARCELLO Protocol Insulin Glargine 10 units 03/17/25 21:00 03/18/25 21:20 Insulin Glargine (*Bkc) 100 Units/Ml SUB-Q 10 units HS MARCELLO Administration Lisinopril 20 mg 03/18/25 11:00 03/19/25 05:30 Lisinopril 20 Mg Tablet PO 20 mg DAILY@0630 MARCELLO Administration Sertraline HCl 100 mg 03/16/25 21:50 03/18/25 21:19 Sertraline Hcl 50 Mg Tablet PO 100 mg QHS MARCELLO Administration Simvastatin 20 mg 03/17/25 09:00 03/19/25 08:59 Simvastatin 20 Mg Tablet PO 20 mg QAM MARCELLO Administration Radiology Results: ITS Impressions Head CT 03/16/25 06:15 IMPRESSION: 1. No acute intracranial findings. Chest X-Ray 03/16/25 06:26 IMPRESSION: 1. No acute cardiopulmonary findings given portable technique. Head/Neck CTA 03/16/25 06:27 IMPRESSION: CTA NECK: 1. No acute findings. CTA HEAD: 1. No acute findings. Brain MRI 03/17/25 08:40 IMPRESSION: 1. Normal aging brain. Labs Labs: Laboratory Results - last 24 hr 03/18/25 03/18/25 03/18/25 12:06 17:16 21:13 WBC RBC Hgb Hct MCV MCH MCHC RDW Plt Count MPV Immature Gran % (Auto) Neut % (Auto) Lymph % (Auto) [place] % (Auto) Eos % (Auto) Baso % (Auto) Lymph # (Auto) [place] # (Auto) Eos # (Auto) Baso # (Auto) Abs Immat Gran (auto) Absolute Neuts (auto) Absolute Nucleated RBC Nucleated RBC % % Immature Plt Fraction Sodium Potassium Chloride Carbon Dioxide Anion Gap BUN Creatinine Estim Creat Clear Calc Estimated GFR Glucose POC Capillary Glucose 120 H 100 130 H Calcium Magnesium Total Bilirubin AST ALT Alkaline Phosphatase Total Protein Albumin 10/19/25 10/19/25 04:54 08:25 WBC 7.4 RBC 5.24 Hgb 15.5 Hct 44.3 MCV 84.5 MCH 29.6 MCHC 35.0 RDW 12.6 Plt Count 166 MPV 9.5 Immature Gran % (Auto) 0.3 Neut % (Auto) 63.3 Lymph % (Auto) 25.4 [place] % (Auto) 6.5 Eos % (Auto) 3.8 Baso % (Auto) 0.7 Lymph # (Auto) 1.88 [place] # (Auto) 0.5 Eos # (Auto) 0.3 Baso # (Auto) 0.1 Abs Immat Gran (auto) 0.02 Absolute Neuts (auto) 4.7 Absolute Nucleated RBC 0.000 Nucleated RBC % 0.0 % Immature Plt Fraction 1.7 Sodium 139 Potassium 3.3 L Chloride 104 Carbon Dioxide 29 Anion Gap 6 BUN 16 Creatinine 0.83 Estim Creat Clear Calc 110 Estimated GFR > 60 Glucose 127 H POC Capillary Glucose 153 H Calcium 8.7 Magnesium 2.0 Total Bilirubin 0.9 AST 45 ALT 51 H Alkaline Phosphatase 66 Total Protein 7.1 Albumin 4.0
[2025-03-19] MEDS: INSULIN GLARGINE (*BKC) 100 UNITS/ML 10 UNITS SUB-Q (21:30)
[2025-03-19] MEDS: SERTRALINE HCL 50 MG TABLET 100 MG PO (21:31)
[2025-03-20] VITALS: PULSE 50
[2025-03-20 00:41] VITALS: PULSE 50
[2025-03-20 04:00] VITALS: PULSE 47
[2025-03-20 04:47] VITALS: BP 181/93; PULSE 50; RESP 18; TEMP 36.6; O2SAT 98
[2025-03-20 08:00] VITALS: PULSE 58
[2025-03-20 09:19] VITALS: BP 177/92; PULSE 58; RESP 18; TEMP 36.6; O2SAT 97
[2025-03-20] MEDS: SIMVASTATIN 20 MG TABLET PO (09:55)
[2025-03-20] MEDS: ATORVASTATIN 40 MG TABLET PO (09:55)
[2025-03-20] MEDS: CLOPIDOGREL BISULFATE 75 MG TABLET PO (09:55)
[2025-03-20] MEDS: ENOXAPARIN 40 MG/0.4 ML SYRINGE SUB-Q (09:56)
[2025-03-20] MEDS: ASPIRIN 81 MG ENTERIC TABLET PO (10:03)
--- NOTE | 2025-03-20 10:08 | P.DS_ITS ---
DS: Admitting Diagnosis Discharge Date 03/20/25 Admitting Diagnosis Left-sided numbness DS: Discharge Diagnosis Discharge Diagnosis (1) Brain TIA: Code(s): G45.9 - Transient cerebral ischemic attack, unspecified Status: Acute DS: Summary Hospital Course Hospital Course: 54-year-old male past medical history of hypertension PTSD/anxiety hyperlipidemia presented to the ER on account of left-sided numbness he Are patient without that and 5:20 a.m. small airway was tried on stabbing headache accompanied with left-sided numbness and the presented to the ER for proper evaluation and care. Denies any chest pain palpitations no lightheadedness no loss of consciousness abdominal pain no diarrhea and no no poor oral intake and recent changes in medications. ER evaluation notable to% 8.3, pulse rate 55, respiratory rate 11, saturating 96% on room air, blood pressure 184/99 Labs notable for potassium 3.2, otherwise unremarkable. CT head CTA and neck chest x-ray unremarkable. Patient was admitted for evaluation CT Patient was started on ASpirin, Lipitor and Plavix x21 days. MRI no acute changes, and ECHO normal changes. LDL 76, A1c 6.0 Symptoms resolved and patient discharged today on event monitor and will follow up with Cardiology and Neurology as in 1-2 weeks F/u with PCP in 3-5 days Time Spent with Patient Time attestation: Total time spent providing and/or coordinating discharge services: DS: Data Data Completed and Pending Labs on day of discharge: Labs from last 24 hours 03/20/25 03/19/25 03/19/25 08:09 21:24 16:42 POC Capillary Glucose 110 H 114 H 97 03/19/25 12:14 POC Capillary Glucose 121 H Discharge Plan Discharge Attending physician on discharge: Elysia Delgadillo Consulting providers: Rafa Araujo; Lenin Gaines Discharging Clinician: Elysia Delgadillo Anticipated Discharge Date/Time: 03/20/25 09:58 Patient Disposition: Home Activity: as tolerated Diet: as tolerated and heart healthy Patient Instructions: Antibiotic Form, Pain Management (GEN) Patient Language: Kiswahili Stand Alone Forms: General Discharge Information Follow-up/Referrals: Lenin Gaines DO [Physician, Cardiology] Referral Note: F/u wiht cardiology in 1-2 weeks Rafa Araujo MD [Physician, Neurology] Referral Note: F/u with neurology in 1-2 weeks Kim,Sushila Samuel, [employer] [Primary Care Provider, Unknown] Referral Note: F/u with PCP in 3- 5 days Discharge Medications: New aspirin 81 mg Tablet,Delayed Release (Dr/Ec) 81 mg PO QAM 30 Days Qty: 30 1RF clopidogrel 75 mg Tablet 75 mg PO QAM 19 Days Qty: 19 0RF amlodipine [Norvasc] 5 mg Tablet 5 mg PO DAILY 30 Days Qty: 30 1RF atorvastatin 40 mg Tablet 40 mg PO DAILY 30 Days Qty: 30 1RF Continued buspirone 10 mg tablet 5 mg PO BID carvedilol 3.125 mg tablet 3.125 mg PO Q12H lisinopril-hydrochlorothiazide 20-25 mg tablet 1 tablet PO DAILY@0630 metformin 500 mg tablet extended release 24 hr 500 mg PO QPM sertraline 100 mg tablet 100 mg PO QHS Discontinued amlodipine 2.5 mg tablet 2.5 mg PO DAILY simvastatin 20 mg tablet 20 mg PO QAM Other Ambulatory Orders: [place] cardiac event monitor (Routine) Timeframe: 1 Day Location: Determined by Patient Ordered By: Lenin Gaines Date of admission: 03/16/25 07:42 Primary Care Provider: Kim,Sushila Samuel Admitting Provider: Mando Garcia Attending physician on admission: Mando Garcia Condition: Serious
--- NOTE | 2025-03-20 12:34 | PC.NURSE ---
On 03/20/25, the student, Mary Beth Jaimes, provided care and completed [facility] documentation on this patient. I have reviewed the student's documentation and agree with the findings.
== END 2025-03-20 11:55 | disposition home or self-care (01) ==
LOC: ANHED 07:34 → ANH2MED 03-17 04:45
PROVIDERS: Emergency Medicine; Psychiatry & Neurology Neurology; Admitting Provider Family Medicine; Emergency Provider Preventive Medicine Aerospace Medicine; Visit Provider Internal Medicine
DX: G45.9 Transient cerebral ischemic attack, unspecified (principal); R20.2 Paresthesia of skin; R20.0 Anesthesia of skin; E87.6 Hypokalemia; R00.1 Bradycardia, unspecified; I10 Essential (primary) hypertension; E78.5 Hyperlipidemia, unspecified; D69.6 Thrombocytopenia, unspecified; G23.8 Other specified degenerative diseases of basal ganglia; E11.9 Type 2 diabetes mellitus without complications; Z90.49 Acquired absence of other specified parts of digestive tract; F43.10 Post-traumatic stress disorder, unspecified; F41.9 Anxiety disorder, unspecified; Z79.84 Long term (current) use of oral hypoglycemic drugs
CPT/HCPCS: 36415; 70450; 70496; 70498; 70551; 71045; 80053; 80061; 82948; 83036; 83735; 84484; 85025; 85055; 85610; 85730; 92610; 93005; 96365; 96366; 96372; 96375; 97161; 99285; A9270; C8929; G0378; J1650; J1815; J3480; Q9957; Q9967